=== PATIENT | male | born 1980 | race Caucasian/White ===

== ENCOUNTER 2022-03-18 10:51 | Emergency (ER) | payer MEDICARE, SELFPAY ==
--- NOTE | ~2022-03-18 | XR_ITS ---
EXAMINATION: XR soft tissue neck DATE: 03/18/2022 11:20 INDICATION: Throat swelling. TECHNIQUE: 2 views of the neck soft tissues were obtained. COMPARISON: None. FINDINGS: The adenoids and palatine tonsils are enlarged. The epiglottis, prevertebral soft tissues, and glottis are normal. IMPRESSION: 1. Enlarged adenoids and palatine tonsils. Reviewed, dictated and finalized at location A.
[2022-03-18 11:00] VITALS: BP 153/97; PULSE 93; RESP 20; TEMP 36.3; O2SAT 97
--- NOTE | 2022-03-18 11:02 | ED.URI ---
HPI - URI/Sore Throat General Chief Complaint: Upper Respiratory Infection Stated Complaint: Sore Throat Time Seen by Provider: 03/18/22 11:03 Source: patient and RN notes reviewed Mode of arrival: ambulatory Limitations: no limitations History of Present Illness HPI Narrative: 41-year-old male presented for complaint of sore throat and raspy voice, onset yesterday. endorses intermittent hoarseness over the past 2 weeks with sinus congestion and drainage. Denies shortness of breath, wheezing, nausea, vomiting, diarrhea, fevers or chills. He has not vaccinated for COVID or flu. He denies sick contacts. He smokes 1 pack/day. Denies drug use. MD elicited complaint: cough Related Data Home Medications Medication Instructions Recorded Confirmed No Home Medications 03/18/22 03/18/22 Allergies Allergy/AdvReac Type Severity Reaction Status Date / Time ibuprofen Allergy Rash Verified 03/18/22 11:20 Review of Systems Review of Systems: CONSTITUTIONAL: Endorses malaise EYES: Denies visual changes ENT: Reports rhinorrhea, congestion, sore throat, hoarseness CARDIOVASCULAR: Denies chest pain RESPIRATORY: Reports cough, post nasal drainage. Denies dyspnea GASTROINTESTINAL: Denies abdominal pain, nausea, vomiting, diarrhea NEUROLOGIC: Denies headache Exam Narrative: GENERAL: Ill-appearing, nontoxic no acute distress. HEAD: Normocephalic EYES: PERRLA, conjunctivae clear ENT: Mucous membranes moist. TM pearly yeung with dull light reflex bilaterally; no tragal tenderness. Oropharynx erythematous and edematous soft palate and muffled voice; without lesions or exudate, no drooling, no hoarseness, no trismus, uvula midline. No tripod positioning NECK: Supple. No lymphadenopathy CHEST: Clear to auscultation, breath sounds equal. Speaks full sentences, no wheezing. HEART: Regular rate and rhythm. No murmur heard. SKIN: Warm, dry, no rash. NEURO: Alert and oriented x3. Course Course Emergency Course: Patient is aware of diagnosis, understands and agrees to treatment plan. Anticipatory guidance given. Patient agrees to follow-up as directed and is aware of reasons to seek care at the emergency department. Portions of this record may have been created with voice recognition software Level of Care: Express Care Visit Vital Signs Vital signs: reviewed MDM - URI/Sore Throat MDM Narrative Medical decision making narrative: strep positive. Xray reviewed with pt, enlarged adenoids and palantine tonsils. Advised on supportive treatment, abx and steroids Rx. He is advised at length on s/s to go to the ER including difficulty breathing/wheezing, worse pain, throat swelling, etc. v/u. Differential Diagnosis Differential diagnosis: Likely upper respiratory infection, sinusitis, viral infection and pharyngitis Imaging Data Radiologist's impression: Ordering Physician: Charlotte Sher APRN Date of Service: 03/18/22 Procedure(s): XR soft tissue neck Accession Number(s): [id number] cc: Charlotte Sher APRN; UNKNOWN,DOCTOR~ EXAMINATION: XR soft tissue neck DATE: 03/18/2022 11:20 INDICATION: Throat swelling. TECHNIQUE: 2 views of the neck soft tissues were obtained. COMPARISON: None. FINDINGS: The adenoids and palatine tonsils are enlarged. The epiglottis, prevertebral soft tissues, and glottis are normal. IMPRESSION: 1. Enlarged adenoids and palatine tonsils. Discharge Plan Discharge Clinical Impression: Strep pharyngitis Patient Disposition: Home, Self-Care Condition: Stable Instructions: Antibiotic Form, Strep Throat (ED) Additional Instructions: - Take the antibiotic as directed. Fever and sore throat typically resolve within one to three days. Most patients can return to work 24 hours of antibiotic therapy, provided you are fever free and otherwise well. -Eat and drink things that are easy to swallow, like soft foods, cool liquids, tea with honey, or popsicles . -Salt water gar
[2022-03-18] MEDS: methylPREDNISolone SOD SUCC 125 MG VIAL IM (11:27)
== END 2022-03-18 11:48 | disposition home or self-care (01) ==
PROVIDERS: Emergency Provider Nurse Practitioner Family
DX: J02.0 Streptococcal pharyngitis (principal); Z20.822 Contact with and (suspected) exposure to COVID-19; F17.200 Nicotine dependence, unspecified, uncomplicated
CPT/HCPCS: 70360; 87426; 87804; 87880; 96372; 99203; C9803; G0463; J2930

== ENCOUNTER 2023-05-13 01:34 | Inpatient (IN) | payer OTHER, MEDICARE, MEDICAID, SELFPAY ==
[2023-05-13] VITALS (53 sets, daily range): BP systolic 102–146; BP diastolic 65–95; PULSE 79–106; RESP 14–24; TEMP 36.4–38.1; O2SAT 93–100; BMI 40.5
--- NOTE | 2023-05-13 | ECHO_ITS ---
Patient Info Name: Bandar Smalls Age: 43 years : 1980 Gender: Male Ht: 75 in Wt: 304 lbs BSA: 2.75 m2 HR: 93 bpm BP: 131 / 81 mmHg Heart Rhythm: Sinus Rhythm Technical Quality: Fair Exam Date: 05/13/2023 8:49 AM Exam Location: [facility] Patient Status: Inpatient Admit Date: 05/13/2023 Staff Ordering Physician: Kimmy Brito MD Epidemiology Internship: Christine Vigil RDCS Attending Provider: Vasiliy Acuna MD Referring Physician: Daryl LAND; Exam Type: CA echo doppler color flow Study Info Indications - pulmonary edema Complete two-dimensional, color flow and Doppler transthoracic echocardiogram is performed with contrast to opacify the left ventricle and to improve the deliniation of the left ventricle endocardial borders. Summary 1. Technically difficult study with limited views. 2. Left ventricular chamber dimension is normal. 3. Left ventricular systolic function is normal, estimated at 55-60%. 4. The left ventricular diastolic function is grade I diastolic dysfunction. 5. Right ventricular systolic function is normal. 6. There is mild tricuspid valve regurgitation. Left Ventricle Left ventricular chamber dimension is normal. Left ventricular systolic function is normal, estimated at 55-60%. There is no increased left ventricular wall thickness. The left ventricular diastolic function is grade I diastolic dysfunction. Right Ventricle Right ventricular chamber dimension is normal. Right ventricular systolic function is normal. Left Atria Left atrial chamber dimension is normal. Right Atria Right atrial chamber dimension is normal. Atrial Septum Interatrial septum not well visualized by color flow imaging. Aortic Valve The aortic valve is not well visualized. There is no aortic valve stenosis. There is no aortic valve regurgitation. Pulmonic Valve The pulmonic valve is not well visualized. Mitral Valve The mitral valve has thickened leaflets. There is trace mitral valve regurgitation. The mitral valve annulus is mildly calcified. Tricuspid Valve There is mild tricuspid valve regurgitation. Pericardium/Pleural There is no pericardial effusion. Inferior Vena Cava Inferior vena cava is not well visualized. Aorta The aortic root size at the sinus of Valsalva is normal. Left Ventricular Outflow Tract Name Value Normal LVOT 2D LVOT Diameter 2.0 cm LVOT Doppler LVOT Peak Gradient 3 mmHg LVOT Mean Gradient 2 mmHg LVOT VTI 17 cm LVOT VTI/AV VTI Ratio 1.2 LVOT Stroke Volume 56 ml LVOT CO 4.8 l/min LVOT CI 1.7 l/min/m2 Pulmonic Valve Name Value Normal RVOT Doppler RVOT Peak Gradient 2 mmHg PV Doppler
--- NOTE | ~2023-05-13 | XR_ITS ---
Portable chest x-ray Comparison: 05/13/2023 Clinical History: Respiratory failure Findings: Endotracheal tube, NG tube, and right IJ line are in satisfactory positions. There is cent ral congestive change and mild central pulmonary edema pattern. Cardiomediastinal silhouette is stab le. Bones and soft tissues are unremarkable. Impression: Support tubes, as above. Central congestive change and mild central pulmonary edema. Reviewed, dictated and finalized at location . Impression: Support tubes, as above. Central congestive change and mild central pulmonary edema.
--- NOTE | ~2023-05-13 | XR_ITS ---
Portable chest x-ray Comparison: 05/19/2023 Clinical History: Respiratory failure Findings: Right IJ line is in place. Small left pleural effusion present. There is probable discoid right basilar atelectasis. Cardiomediastinal silhouette is stable. Bones and soft tissues are unrema rkable. Impression: Right IJ line in place. Minimal left pleural effusion. Probable discoid right basilar atelectasis. Correlate clinically for pneumonia. Reviewed, dictated and finalized at location . Impression: Right IJ line in place. Minimal left pleural effusion. Probable discoid right basilar atelectasis. Correlate clinically for pneumonia.
--- NOTE | ~2023-05-13 | XR_ITS ---
XR chest 1V portable DATE: 05/15/2023 05:37 INDICATION: Acute respiratory failure. Mechanical ventilation. TECHNIQUE: Portable AP chest on 05/15/2023 at 0528 hours COMPARISON: 05/14/2023 portable AP chest at 0509 hours FINDINGS: ET tube in satisfactory position. NG tube in gastric fundus in satisfactory position. Right internal jugular central venous catheter tip overlies the proximal superior vena cava. Cardiomegaly. There is pulmonary vascular congestion and redistribution. There are bilateral mid and lower lung zone infiltrates and/or atelectasis. Pulmonary interstitial prominence suggests pulmonary edema. IMPRESSION: Congestive changes and bilateral infiltrates and/atelectasis with little interval change since 05/14/2023 Reviewed, dictated and finalized at location A. IMPRESSION: Congestive changes and bilateral infiltrates and/atelectasis with l ittle interval change since 05/14/2023
--- NOTE | ~2023-05-13 | XR_ITS ---
XR chest 1V portable DATE: 05/16/2023 05:37 INDICATION: Acute respiratory failure; mechanical ventilation TECHNIQUE: Portable AP chest on 05/16/2023 at 0511 hours COMPARISON: 05/15/2023 portable AP chest at 0528 hours FINDINGS: Increased bilateral pulmonary infiltrates since 05/15/2023 suggesting increased pulmonary ed shanice. Pneumonia or aspiration are not excluded. ET and NG tubes are in satisfactory position. Right internal jugular central venous catheter tip over lies proximal superior vena cava. No pneumothorax. IMPRESSION: Diffusely increased prominent bilateral pulmonary infiltrates suggesting increased pulmon kylee edema since 05/15/2023 Reviewed, dictated and finalized at location A. IMPRESSION: Diffusely increased prominent bilateral pulmonary infiltrates sugge sting increased pulmonary edema since 05/15/2023
--- NOTE | ~2023-05-13 | US_ITS ---
US venous doppler UE RT DATE: 05/14/2023 13:21 INDICATION: Swelling of the right upper extremity TECHNIQUE: Real-time and color flow imaging and Doppler analysis of the veins of the right upper extr emity COMPARISON: None FINDINGS: Right internal jugular vein is not able to be evaluated because of an IUD in the neck. There is flow in the right subclavian, axillary, brachial, basilic, cephalic, radial and ulnar veins, with normal augmentation and normal compression where applicable. IMPRESSION: No evidence of deep venous thrombosis of right upper extremity Right internal jugular vein is not evaluated Reviewed, dictated and finalized at [facility]. Reviewed, dictated and finalized at location [facility].
--- NOTE | ~2023-05-13 | XR_ITS ---
Portable chest x-ray Comparison: None Clinical History: Tube placement Findings: Endotracheal tube is present, tip at the jennifer. NG tube in satisfactory position. Questio nable minimal left lung haziness. Cardiomediastinal silhouette is prominent. Bones and soft tissues are unremarkable. Impression: Endotracheal tube tip is at the jennifer. Retraction by 4-5 cm advised. NG tube in place. Questionable minimal haziness left lung, nonspecific. Reviewed, dictated and finalized at location [facility]. Impression: Endotracheal tube tip is at the jennifer. Retraction by 4-5 cm advised. NG tube in place. Questionable minimal haziness left lung, nonspecific.
--- NOTE | ~2023-05-13 | CT_ITS ---
Noncontrast CT scan of the cervical spine Technique: Multiple contiguous axial [address] images of the cervical spine were obtained and rec onstructed in 2D sagittal and coronal planes on the acquisition scanner. Dose reduction technique was used on this scan by utilizing automated exposure control, adjustment of the mA and/or kV according to patient size. The dose-length product (DLP) was 617.50 mGy-cm. Clinical History: Unresponsive Findings: No fractures or dislocations. There is minimal reversal normal cervical lordosis. The inte rvertebral disc spaces are preserved. No prevertebral soft tissue swelling. Impression: No fracture or subluxation of the cervical spine. Reviewed, dictated and finalized at location . Impression: No fracture or subluxation of the cervical spine.
--- NOTE | ~2023-05-13 | XR_ITS ---
Portable chest x-ray Comparison: 05/18/2023 Clinical History: Respiratory failure Findings: Endotracheal tube, NG tube, and right IJ line are in satisfactory positions. There is mode rate pulmonary edema pattern with small left pleural effusion. Cardiomediastinal silhouette is stabl e. Bones and soft tissues are unremarkable. Impression: Moderate pulmonary edema pattern with small left pleural effusion. Support tubes, as above. Reviewed, dictated and finalized at location . Impression: Moderate pulmonary edema pattern with small left pleural effusion. Support tubes, as above.
--- NOTE | ~2023-05-13 | XR_ITS ---
Portable chest x-ray Comparison: 05/13/2023 at 2:24 AM Clinical History: Tube placement Findings: Endotracheal tube, NG tube, and right IJ line are in satisfactory positions. There is mini mal haziness in the left lung, similar to prior exam. Right lung essentially clear. Cardiomediastina l silhouette is stable. Bones and soft tissues are unremarkable. Impression: Support tubes, as above. No pneumothorax. Minimal nonspecific haziness in the left lung, unchanged. Reviewed, dictated and finalized at location M. Impression: Support tubes, as above. No pneumothorax. Minimal nonspecific haziness in the left lung, unchanged.
--- NOTE | ~2023-05-13 | CT_ITS ---
Clinical Indication: Dissection CT Scan of the Chest, Abdomen, and Pelvis with Contrast: Technique: Contiguous sections were acquired throughout the chest, abdomen, and pelvis after intraven ous administration of 100 cc of Omnipaque 350. Dose reduction technique was used on this scan by michelle farmer automated exposure control and iterative reconstruction technique. The dose-length product (DL P) was 2177.54 mGy-cm. Findings: There is no evidence of any significant mediastinal, hilar or axillary lymphadenopathy. The mediastin al soft tissues appear normal. There is no thoracic aortic aneurysm or dissection. There is no evidence of pleural or pericardial effusion. There is dependent bilateral pulmonary atelectatic change.. The liver, spleen, pancreas, adrenals and kidneys are within normal limits. Cholecystectomy clips are present. No abdominal aortic aneurysm or dissection. No lymphadenopathy. No bowel obstruction or bowel wall thickening. There is no evidence to suggest acute appendicitis. Th ere is probable postoperative change or possibly mesh at the left lower quadrant. Nicholas catheter in place in the urinary bladder. No pelvic mass seen. No ascites. Impression: No aortic aneurysm or dissection. Dependent bilateral pulmonary atelectatic change. Correlate clinically for any possibility of superim posed pneumonia. Reviewed, dictated and finalized at [facility]. Impression: No aortic aneurysm or dissection. Dependent bilateral pulmonary atelectatic change. Correlate clinically for any possibility of superimposed pneumonia.
--- NOTE | ~2023-05-13 | XR_ITS ---
Supine and upright views of the abdomen Clinical history: NG tube placement Findings: NG tube in satisfactory position. Bowel gas pattern is nonspecific. No evidence for obstruc tion or free air. No abnormal mass lesion or calcification is seen. Lumbosacral spinal fixation hardw are present. Impression: NG tube in satisfactory position. Reviewed, dictated and finalized at [facility]. Impression: NG tube in satisfactory position.
--- NOTE | ~2023-05-13 | XR_ITS ---
Portable chest x-ray Comparison: 05/16/2023 Clinical History: Respiratory failure Findings: Endotracheal tube and NG tube are in satisfactory positions. Right IJ line has flipped lat erally into the right subclavian vein. [id number] bilateral pleural effusions are present with moderate pulmonary edema pattern. Cardiomediastinal silhouette is stable. Bones and soft tissues ar e unremarkable. Impression: Moderate pulmonary edema pattern with small to moderate bilateral pleural effusions and left basilar atelectasis. Right IJ line tip has flipped laterally into the right subclavian vein. Repositioning into the SVC is advised. ET tube and NG tube are in satisfactory positions. Reviewed, dictated and finalized at location . Impression: Moderate pulmonary edema pattern with small to moderate bilateral pleural effus ions and left basilar atelectasis. Right IJ line tip has flipped laterally into the right subclavian vein. Reposit ioning into the SVC is advised. ET tube and NG tube are in satisfactory positions.
--- NOTE | ~2023-05-13 | XR_ITS ---
Portable chest x-ray Comparison: 05/17/2023 Clinical History: Respiratory failure Findings: Endotracheal tube, NG tube, and right IJ line are in satisfactory positions. There is mild to moderate pulmonary edema pattern. Small left pleural effusion present. Cardiomediastinal silhoue tte is stable. Bones and soft tissues are unremarkable. Impression: Mild to moderate pulmonary edema pattern with small left pleural effusion. Support tubes, as above. Reviewed, dictated and finalized at location . Impression: Mild to moderate pulmonary edema pattern with small left pleural effusion. Support tubes, as above.
--- NOTE | ~2023-05-13 | CT_ITS ---
Non-contrast Head CT History: Unresponsive Technique: Axial non-contrast imaging of the brain was performed. Dose reduction technique was used on this scan by utilizing automated exposure control and iterative reconstruction technique. The dose -length product (DLP) was 617.50 mGy-cm. Findings: There is no evidence of intracranial hemorrhage, mass lesion, or acute infarct. Brain par enchyma appears normal. The ventricles and subarachnoid spaces are normal in size. The calvarium ap pears normal. The visualized paranasal sinuses and mastoid air cells are clear. Impression: No significant abnormality seen. Reviewed, dictated and finalized at location . Impression: No significant abnormality seen.
--- NOTE | ~2023-05-13 | XR_ITS ---
Portable chest x-ray Comparison: 05/20/2023 Clinical History: Respiratory failure Findings: There is discoid bibasilar atelectasis. Lungs are otherwise clear. Cardiomediastinal silh ouette is stable. Bones and soft tissues are unremarkable. Impression: Discoid bibasilar atelectasis. Reviewed, dictated and finalized at location . Impression: Discoid bibasilar atelectasis.
--- NOTE | 2023-05-13 01:44 | ED.GENADULT ---
HPI - General Adult General Chief complaint: Neuro Symptoms/Deficit Stated complaint: unresponsive Time Seen by Provider: 05/13/23 01:36 History of Present Illness HPI narrative: 41 year old male unknown past medical history brought in by EMS for unresponsiveness. Per EMS, bystanders noted patient was coming out of a gas station when he suddenly collapsed. When EMS on scene, narcan was given without improvement. Patient with agonal breathing so patient was intubated with etomidate, right IO placed. Patient was agitated, self-extubated, EMS re-intubated patient. A: ETT in place 8.0, continuous capnography B: Bilateral breath sounds C: peripheral pulses palpable, BP 120/80s E: No gross evidence of trauma ROS limited due to condition Related Data Allergies Allergy/AdvReac Type Severity Reaction Status Date / Time ibuprofen Allergy Rash Verified 03/18/22 11:20 Review of Systems Review of Systems: See HPI Exam Narrative: General: Sedated and intubated, atraumatic HEENT: Pupils equal round and reactive to light, no conjunctival injection, head atraumatic Cardiovascular: Regular rate and rhythm, no visible jugular venous distension Respiratory: Lungs clear to auscultation bilaterally, no wheezing/rales/rhonchi Abdominal: soft, abdominal scar well healed, non-tender, non-distended, no guarding, no rebound/peritoneal signs, no costovertebral tenderness to palpation Back: no midline tenderness to palpation, no step offs Extremities: Right IO in place, No edema, palpable peripheral pulses, warm, well perfused Neurological: Sedated, moving all extremities symmetrically when agitated Course Consultations Consultation #1: Case discussed with intesivist Dr. Patel. Accepted patient to the ICU Date: 05/13/23 Time: 03:49 Vital Signs Vital signs: Vital Signs Blood Pressure 117/67 05/13/23 01:50 Pulse Oximetry 97 05/13/23 01:50 Oxygen Delivery Mechanical Ventilation 05/13/23 01:50 Pulse Rate 92 05/13/23 03:30 Respiratory Rate 14 05/13/23 03:30 Blood Pressure 117/67 05/13/23 01:50 Pulse Oximetry 97 05/13/23 04:35 Oxygen Delivery Mechanical Ventilation 05/13/23 02:17 Fraction of Inspired Oxygen 60 05/13/23 04:35 Procedures Central Line Placement Right IJ: Central Line Date: 05/13/23 Central Line Time: 03:50 Performed Emergently - Given emergent patient condition, temporal constraints may have precluded informed consent.: Yes Time Out Performed: Yes Patient Placed on Monitor/Pulse Ox: Yes Max. Sterile Barrier Technique: Caps, large sterile sheet and hand hygiene Central Line Prep: 2% chlorhexidine scrub and sterile drapes applied Technique: US-Guided Local Anesthetic: none Ultrasound Used for Placement: Yes Central Line Lumen Inserted: triple Post Procedure: sutured in place, good blood return, all ports aspirated, flushed, capped and sterile dressing applied Post Procedure X-Ray: tip of catheter in good position and no pneumothorax seen Complications: none Other Procedure Procedure 1: Other Procedure: Total critical care time: Approximately?65 minutes Due to a high probability of clinically significant, life threatening deterioration, the patient required my highest level of preparedness to intervene emergently and I personally spent this critical care time directly and personally managing the patient. This critical care time included obtaining a history; examining the patient; pulse oximetry; ordering and review of studies; arranging urgent treatment with development of a management plan; evaluation of patient's response to treatment; frequent reassessment; and, discussions with other providers. This critical care time was performed to assess and manage the high probability of imminent, life-threatening deterioration that could result in multi-organ failure. It was exclusive of [facility]
--- NOTE | 2023-05-13 02:09 | PC.NURSE ---
0145 Pt given 4 mg Versed IV push per MD verbal order. 0145 Propofol drip started a 5 mcg/kg/min per MD verbal order. 0150 Ng tube placed 73 in at the left nare. 0155 Propofol bolus 100 mg administered by . 0206 Nicholas catheter inserted.
--- NOTE | 2023-05-13 02:22 | PC.NURSE ---
DR. FREITAS at bedside. 0215 dr freitas pushed 100mg propofol. per verbal order read back propofol drip increased to 30 mcg/hr.
[2023-05-13] MEDS: FENTANYL 2,500MCG/NS250ML(*CRX 2,500 MCG/250 ML BAG IV CONT (02:29)
[2023-05-13] MEDS: SODIUM CHLORIDE 0.9% IV 1,000 ML 999 ML IV CONT (02:32)
--- NOTE | 2023-05-13 02:34 | PC.NURSE ---
verbal order readback 100 mg Rocuronium at 0235
--- NOTE | 2023-05-13 02:39 | PC.NURSE ---
0233 100 mg of rocuronium administered via IV push per MD verbal order. 0237 100 mg bolus of propofol administered by Dr. simental after numerous attempts to sedate pt have been unsuccessful.
[2023-05-13 02:43] LABS: Basophils Absolute Auto 0.1 K/mm3 (0.0-0.1); Basophils Percent Auto 0.7 % (0.2-1.2); Eosinophils Absolute Auto 0.2 K/mm3 (0-0.3); Eosinophils Percent Auto 1.9 % (0-4.4); Hematocrit 37.8 % (42.0-52.0); Hemoglobin 12.4 g/dL (14.0-18.0); Immature Granulocyte Absolute 0.03 K/mm3 (0.00-0.031); Immature Granulocyte Percent A 0.4 % (0-0.5); Lymphocytes Absolute Auto 1.43 K/mm3 (0.9-3.2); Lymphocytes Percent Auto 16.8 % (18.3-44.2); Mean Corpuscular HGB Conc 32.8 g/dl (32-36); Mean Corpuscular Hemoglobin 30.5 pg (26-34); Mean Corpuscular Volume 92.9 fl (80-100); Mean Platelet Volume 10.5 fl (7.4-10.4); Monocytes Absolute Auto 0.7 K/mm3 (0.1-0.6); Monocytes Percent Auto 8.2 % (2.6-8.5); Neutrophils Absolute Auto 6.2 K/mm3 (1.3-6.7); Platelet Count Result 250 k/mm3 (150-375); Red Blood Count 4.07 M/mm3 (4.6-6.20); Red Cell Distribution Width 13.6 % (11.5-14.5); White Blood Count 8.5 K/mm3 (4.5-10.0)
--- NOTE | 2023-05-13 02:47 | ECG_ITS ---
Measurements Intervals Santa Rate: 98 P: 57 ND: 151 QRS: 31 QRSD: 111 T: 38 QT: 396 QTc: 507 Interpretive Statements SINUS RHYTHM INTRAVENTRICULAR CONDUCTION DELAY DELAYED PRECORDIAL R/S TRANSITION MINIMAL Q WAVES- INFERIOR LEADS BORDERLINE ECG NO PREVIOUS ECG AVAILABLE FOR COMPARISON Electronically Signed On 05-13-2023 8:24:55 CDT by Michele Mccracken D.O.
--- NOTE | 2023-05-13 02:47 | PC.NURSE ---
0245 per MD verbal order read back, Propofol drip increased to 50mcg/hr. MD at bedside continuing attempts to sedate patient.
--- NOTE | 2023-05-13 02:49 | PC.NURSE ---
0249 Dr. Gomez to attempt central line on patient.
[2023-05-13 02:54] LABS: Barbiturate Screen Urine Negative (Negative); Benzodiazepines Screen Urine Positive (Negative)
[2023-05-13 02:56] LABS: Cannabinoid Screen Urine Negative (Negative); Cocaine Screen Urine Negative (Negative); Ethanol < 10 mg/dL (<10); Methadone Screen Urine Negative (Negative); Opiate Screen Urine Positive (Negative); Phencyclidine Screen Urine Negative (Negative)
[2023-05-13 03:01] LABS: Acetaminophen < 10 ug/mL (10-30); Salicylate < 1.0 mg/dL (2-20)
[2023-05-13 03:13] LABS: Alanine Aminotransferase 58 U/L (6-50); Albumin Level 4.2 g/dL (3.5-5.1); Alkaline Phosphatase 46 U/L (38-126); Amphetamine Screen Urine Positive (Negative); Anion Gap 12 mmol/L (8-16); Aspartate Amino Transferase 61 U/L (17-59); Bilirubin,Total 0.8 mg/dL (0.2-1.3); Blood Urea Nitrogen 19 mg/dL (9-20); Calcium 8.8 mg/dL (8.4-10.2); Carbon Dioxide 27 mmol/L (22-30); Chloride 102 mmol/L (98-107); Estimated Glomerular Filt Rate > 60; Glucose 167 mg/dL (65-110); Lipase 65 U/L (23-300); Potassium 3.7 mmol/L (3.4-5.0); Sodium 141 mmol/L (137-145)
[2023-05-13 03:24] LABS: Troponin I < 0.012 ng/mL (0.000-0.034)
[2023-05-13 03:26] LABS: Creatine Kinase 376 U/L (55-170)
[2023-05-13 03:36] LABS: NT Pro B Type Natriuretic Pept 164 pg/mL (19.9-100)
--- NOTE | 2023-05-13 05:21 | PC.NURSE ---
fentanyl titrated at 0245 to 50 mcg/hr not 50ml/hr 0300 to 75 mcg/hr not 75ml/hr 0315 to 100 mcg/hr not 100ml/hr [facility] will not allow this RN to correct rates in MAR.
[2023-05-13] MEDS: MIDAZOLAM HCL (*CRX) 2 MG/2 ML VIAL 4 MG IV PUSH (05:43)
[2023-05-13] MEDS: LORazepam INJ (*CRX) 2 MG/ML VIAL IV PUSH ×2 (05:43)
[2023-05-13] MEDS: PROPOFOL IV EMULSION 100 ML 4.08 MG IV CONT (05:50)
--- NOTE | 2023-05-13 06:34 | PC.NURSE ---
0620 Waiting for respiratory to help take pt up to the ICU at this time.
--- NOTE | 2023-05-13 07:26 | ADMGEN ---
This patient, Bandar Smalls, was admitted to Intensive Care Unit-1. Patient/family oriented to hospital policies and general routines including ID bracelet, bed and alarms, visiting hours, pain management, procedures, bathroom and other care routines, personal items, smoking policy, room service/diet, and visiting hours. Information on how to activate the Rapid Response Team has been discussed. Patient/Family are encouraged to report perceived risks to care and to ask questions if they do not understand what they are told or what they should do.
[2023-05-13] MEDS: PROPOFOL IV EMULSION 100 ML 24.49 MG IV CONT ×3 (07:27→18:52)
[2023-05-13] MEDS: AZITHROMYCIN 500 MG/NS 250 ML 500 MG/250 ML BAG 250 MG IVPB (07:38)
[2023-05-13] MEDS: AMPICILLIN SULB 3 GM/NS 100 ML 3 GM/100 ML VIAL IVPB ×3 (08:25→17:23)
[2023-05-13] MEDS: PERFLUTREN LIPID MICROSPHERES 1.5 ML VIAL DILUTED TO 10 ML TOTAL VOLUME IV PUSH (08:30)
[2023-05-13] MEDS: LACTATED RINGERS 1,000 ML 100 ML IV CONT ×2 (08:35→20:17)
[2023-05-13] MEDS: LACTATED RINGERS 1,000 ML 999 ML IV CONT (08:35)
[2023-05-13] MEDS: MINERAL OIL/WHITE PETROLATUM OINTMENT 1 APPLIC EACH EYE ×2 (08:35→20:30)
[2023-05-13 08:42] LABS: Creatine Kinase 314 U/L (55-170)
[2023-05-13 08:44] LABS: Lactic Acid Reflex 0.7 mmol/L (0.7-2.0)
[2023-05-13 08:46] LABS: Triglycerides 101 mg/dL (<150)
[2023-05-13 08:54] LABS: Troponin I 0.019 ng/mL (0.000-0.034)
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
[2023-05-13 09:26] LABS: Procalcitonin 0.4 ng/mL
[2023-05-13 09:43] LABS: Alveolar/Arterial O2 Gradient 304.3 mmHg; Base Excess ABG 1.6 mEq/l (+/-2.0); Fractional Inspired Oxygen 60 %; HCO3 ABG 25.9 mEq/l (22.0-26.0); Oxygen Content ABG 17.2 %vol (16.0-22.0); Oxygen Saturation ABG 96.1 % (95.0-100.0); Oxyhemoglobin 94.3 % THb (90.0-100.0); PCO2 ABG 39.7 mmHg (35.0-45.0); PO2 ABG 79.8 mmHg (80.0-100.0); PO2 FiO2 Ratio Arterial Blood 1.33 %; Total Hemoglobin 12.9 g/dL (12.0-18.0); pH ABG 7.433 (7.350-7.450)
[2023-05-13] MEDS: PROPOFOL IV EMULSION 100 ML 20.41 MG IV CONT (09:43)
[2023-05-13 09:47] LABS: Arterial Blood Gas PEEP 5 cmH2O; Arterial Blood Gas Tidal Volume 500 ml; Arterial Blood Gas Vent Mode CMV; Arterial Blood Gas Ventilator rate 22 /MIN; Device VENTILATOR; Modified Allen's Test Pass; Site Drawn RIGHT RADIAL
[2023-05-13] MEDS: ENOXAPARIN 40 MG/0.4 ML SYRINGE SUB-Q (11:00)
[2023-05-13] MEDS: PANTOPRAZOLE SODIUM IV 40 MG VIAL IV PUSH (11:10)
[2023-05-13] MEDS: FENTANYL 2,500MCG/NS250ML(*CRX 2,500 MCG/250 ML BAG 15 MCG IV CONT (16:32)
--- NOTE | 2023-05-13 17:09 | PM.IMHP ---
H&P: HPI History of Present Illness Date/Time: 05/13/23 17:09 Chief Complaint: respiratory failure Narrative: ED-HPI narrative: 41 year old male unknown past medical history brought in by EMS for unresponsiveness. Per EMS, bystanders noted patient was coming out of a gas station when he suddenly collapsed. When EMS on scene, narcan was given without improvement. Patient with agonal breathing so patient was intubated with etomidate, right IO placed. Patient was agitated, self-extubated, EMS re-intubated patient. A: ETT in place 8.0, continuous capnography B: Bilateral breath sounds C: peripheral pulses palpable, BP 120/80s E: No gross evidence of trauma 43-year-old male with history drug abuse and presented with a respiratory failure on ventilator unable to provide any history review of symptom, patient is seen by ict educator and appreciate. patient with respiratory failure on ventilator admitted as inpatient Review of Systems Review of Systems: ROS unobtainable: Yes unobtainable due to endotracheal tube PMFSH Family History Family History (Updated 05/13/23 @ 10:18 by Jodi Wahl RN) Father Lung cancer Diabetes mellitus Mother Diabetes mellitus Social History Social History Smoking packs per day: 1.5 Smoking cigarettes per day: 30.0 Years smoked: 28 Smoking pack-years: 42.00 Smoking status: Current every day smoker Tobacco type: cigarettes Alcohol intake: never Substance use: current Substance use type: amphetamines, sedatives and opiates Spiritual care concerns: No Meds Home Medications and Allergies Home Medications Medication Instructions Recorded Confirmed Type clonidine HCl 0.1 mg tablet 0.1 mg PO TID 05/13/23 05/13/23 History duloxetine 60 mg capsule,delayed 60 mg PO DAILY 05/13/23 05/13/23 History release mirtazapine 15 mg tablet 15 mg PO HS 05/13/23 05/13/23 History naloxone 4 mg/actuation nasal spray 1 spray intranasal Q15M PRN Opioid 05/13/23 05/13/23 History Overdose quetiapine 100 mg tablet 100 mg PO DAILY 05/13/23 05/13/23 History tramadol 50 mg tablet 50 mg PO Q6H PRN Pain (Scale Score 05/13/23 05/13/23 History 4-6) trazodone 50 mg tablet 50 mg PO HS 05/13/23 05/13/23 History Allergies Allergy/AdvReac Type Severity Reaction Status Date / Time ibuprofen Allergy Rash Verified 03/18/22 11:20 Vital Signs Vital Signs - 24 hr 05/13/23 01:50 05/13/23 02:17 05/13/23 02:29 Temperature Pulse Rate 105 H 106 H Respiratory Rate 17 Blood Pressure 117/67 Pulse Oximetry 97 97 Oxygen Delivery Mechanical Ventilation Mechanical Ventilation Fraction of Inspired Oxygen 100 05/13/23 02:45 05/13/23 03:00 05/13/23 03:15 Temperature Pulse Rate 98 97 98 Respiratory Rate 14 14 14 Blood Pressure Pulse Oximetry Oxygen Delivery Fraction of Inspired Oxygen 05/13/23 04:35 05/13/23 02:54 05/13/23 03:30 Temperature Pulse Rate 89 92 Respiratory Rate 14 Blood Pressure Pulse Oximetry 97 Oxygen Delivery Fraction of Inspired Oxygen 60 05/13/23 04:20 05/13/23 05:00 05/13/23 05:50 Temperature Pulse Rate 89 90 90 Respiratory Rate 22 H 22 H 22 H Blood Pressure Pulse Oximetry Oxygen Delivery Fraction of Inspired Oxygen 05/13/23 05:50 05/13/23 05:55 05/13/23 05:15 Temperature Pulse Rate 93 91 79 Respiratory Rate 22 H 22 H 14 Blood Pressure 131/81 Pulse Oximetry 95 Oxygen Delivery Fraction of Inspired Oxygen 05/13/23 02:18 05/13/23 03:18 05/13/23 03:30 Temperature Pulse Rate 106 H 99 97 Respiratory Rate 22 H 14 14 Blood Pressure 146/92 H 118/71 110/71 Pulse Oximetry 98 99 97 Oxygen Delivery Fraction of Inspired Oxygen 05/13/23 03:35 05/13/23 03:40 05/13/23 03:45 Temperature Pulse Rate 96 95 94 Respiratory Rate 14 14 14 Blood Pressure 111/70 113/74 114/68 Pulse Oximetry 97 98 98 Oxygen D
[2023-05-13 17:26] LABS: Glucose Point of Care 143 mg/dl (65-105)
[2023-05-13] MEDS: PROPOFOL IV EMULSION 100 ML 36.74 MG IV CONT (22:56)
[2023-05-14] VITALS (52 sets, daily range): BP systolic 112–152; BP diastolic 60–82; PULSE 88–102; RESP 14–29; TEMP 37.7–38.3; O2SAT 92–100
[2023-05-14 00:09] LABS: Glucose Point of Care 139 mg/dl (65-105)
[2023-05-14] MEDS: AMPICILLIN SULB 3 GM/NS 100 ML 3 GM/100 ML VIAL IVPB ×4 (00:09→17:05)
[2023-05-14] MEDS: PROPOFOL IV EMULSION 100 ML 40.82 MG IV CONT ×5 (01:24→11:09)
[2023-05-14] MEDS: MIDAZOLAM 100MG/NS 100ML(*CRX) 100 MG/100 ML BAG IV CONT ×2 (02:13→23:43)
[2023-05-14] MEDS: IPRATROPIUM BR 0.02% INH SOLN 0.5 MG/2.5 ML VIAL INHALATION ×4 (02:46→20:28)
[2023-05-14] MEDS: ALBUTEROL SULFATE NEB 2.5 MG/3 ML INH INHALATION ×4 (02:46→20:27)
[2023-05-14] MEDS: DORNASE ALFA INH SOLN 1 MG/ML 2.5 ML AMP 2.5 MG INHALATION (02:47)
[2023-05-14 05:05] LABS: Alveolar/Arterial O2 Gradient 248.5 mmHg; Base Excess ABG 1.2 mEq/l (+/-2.0); Carboxyhemoglobin 0.8 % THb (0-2.0); Fractional Inspired Oxygen 50 %; HCO3 ABG 25.1 mEq/l (22.0-26.0); Methemoglobin ABG 0.4 %THb (0-1.5); Oxygen Content ABG 15.3 %vol (16.0-22.0); Oxygen Saturation ABG 93.8 % (95.0-100.0); Oxyhemoglobin 91.3 % THb (90.0-100.0); PCO2 ABG 37.5 mmHg (35.0-45.0); PO2 ABG 65.8 mmHg (80.0-100.0); PO2 FiO2 Ratio Arterial Blood 1.32 %; Reduced Hemoglobin 7.5 %THb (0-5.0); Total Hemoglobin 11.9 g/dL (12.0-18.0); pH ABG 7.444 (7.350-7.450)
[2023-05-14 05:06] LABS: Device VENTILATOR; Modified Allen's Test Pass; Site Drawn RIGHT RADIAL
[2023-05-14 05:07] LABS: Arterial Blood Gas PEEP 5 cmH2O; Arterial Blood Gas Tidal Volume 500 ml; Arterial Blood Gas Vent Mode CMV; Arterial Blood Gas Ventilator rate 22 /MIN
[2023-05-14] MEDS: LACTATED RINGERS 1,000 ML 100 ML IV CONT (06:05)
[2023-05-14 06:19] LABS: Basophils Absolute Auto 0.1 K/mm3 (0.0-0.1); Basophils Percent Auto 0.9 % (0.2-1.2); Eosinophils Absolute Auto 0.5 K/mm3 (0-0.3); Eosinophils Percent Auto 5.3 % (0-4.4); Hematocrit 34.4 % (42.0-52.0); Hemoglobin 11.3 g/dL (14.0-18.0); Immature Granulocyte Absolute 0.04 K/mm3 (0.00-0.031); Immature Granulocyte Percent A 0.4 % (0-0.5); Lymphocytes Absolute Auto 1.48 K/mm3 (0.9-3.2); Lymphocytes Percent Auto 15.2 % (18.3-44.2); Mean Corpuscular HGB Conc 32.8 g/dl (32-36); Mean Corpuscular Hemoglobin 30.8 pg (26-34); Mean Corpuscular Volume 93.7 fl (80-100); Mean Platelet Volume 10.2 fl (7.4-10.4); Monocytes Absolute Auto 0.8 K/mm3 (0.1-0.6); Monocytes Percent Auto 7.7 % (2.6-8.5); Neutrophils Absolute Auto 6.9 K/mm3 (1.3-6.7); Neutrophils Percent Auto 70.5 % (45.5-73.1); Platelet Count Result 210 k/mm3 (150-375); Red Blood Count 3.67 M/mm3 (4.6-6.20); White Blood Count 9.8 K/mm3 (4.5-10.0)
[2023-05-14 06:25] LABS: Creatine Kinase 143 U/L (55-170); Lipase 108 U/L (23-300); Magnesium 2.2 mg/dL (1.6-2.3)
[2023-05-14 06:25] LABS: Lactic Acid Reflex 0.8 mmol/L (0.7-2.0)
[2023-05-14 07:11] LABS: Anion Gap 7 mmol/L (8-16); Blood Urea Nitrogen 15 mg/dL (9-20); Carbon Dioxide 29 mmol/L (22-30); Chloride 104 mmol/L (98-107); Estimated CRCL calculation 163 ml/min; Estimated Glomerular Filt Rate > 60; Glucose 92 mg/dL (65-110); Potassium 3.3 mmol/L (3.4-5.0); Sodium 140 mmol/L (137-145)
[2023-05-14 07:40] LABS: Alanine Aminotransferase 41 U/L (6-50); Albumin Level 3.4 g/dL (3.5-5.1); Alkaline Phosphatase 45 U/L (38-126); Anion Gap 5 mmol/L (8-16); Aspartate Amino Transferase 39 U/L (17-59); Bilirubin,Total 0.6 mg/dL (0.2-1.3); Blood Urea Nitrogen 15 mg/dL (9-20); Calcium 8.1 mg/dL (8.4-10.2); Carbon Dioxide 29 mmol/L (22-30); Chloride 106 mmol/L (98-107); Estimated CRCL calculation 185 ml/min; Estimated Glomerular Filt Rate > 60; Glucose 91 mg/dL (65-110); Potassium 3.3 mmol/L (3.4-5.0); Sodium 140 mmol/L (137-145)
[2023-05-14] MEDS: POTASSIUM CHLORIDE 20 MEQ PACKET (FOR LIQUID) 60 MEQ FEED TUBE (07:58)
[2023-05-14] MEDS: AZITHROMYCIN 500 MG/NS 250 ML 500 MG/250 ML BAG 250 MG IVPB (08:01)
[2023-05-14] MEDS: PANTOPRAZOLE SODIUM IV 40 MG VIAL IV PUSH (08:01)
[2023-05-14] MEDS: ENOXAPARIN 40 MG/0.4 ML SYRINGE SUB-Q (08:01)
[2023-05-14] MEDS: MINERAL OIL/WHITE PETROLATUM OINTMENT 1 APPLIC EACH EYE ×2 (08:02→21:36)
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
[2023-05-14] MEDS: FENTANYL 2,500MCG/NS250ML(*CRX 2,500 MCG/250 ML BAG 20 MCG IV CONT (10:11)
[2023-05-14] MEDS: VANCOMYCIN 1,250 MG/NS 250 ML 1,250 MG/250 ML BAG 166.67 MG IVPB ×2 (10:29→11:33)
--- NOTE | 2023-05-14 11:09 | PCNFU ---
Nutrition Follow-Up Complete: Inadequate Energy Expenditure as related to mechanical ventilation as evidenced by tube feedings recommendations. Meet estimanted nutritional needs - Goal being met with tube feeding Goal: Pt current nutrition is Vital 1.2 @ 60 ml/h for total 1584 kcal, 99 g protein, 1070 ml free water. Flushes 30 ml/h. Propofol at 50 mcg= 1077 kcal. Nutrition recommendation: Reduce rate of tube feeding to 40 ml/h (1056 kcal, 66 g protein, 713 ml free water) and add Prsoource TF protein modular BID for total 1236 kcal, 106 g protein, 713 ml free water. Kcal from propofol (40.82 ml/h)=1077. Total kcal = 2313 Last recorded weight is 149 kg. Bowel Motility: No BM recorded yet Labs Reviewed: Hgb 11.3, Hct 34.4 Alb 3.4, K+ 3.3, Glu 139 Meds Noted: Propofol, fentanyl, versed, vancomycin Skin: WNL Additional Notes: Remains on vent. Propofol was titrated up to 50 mcg, reduce tube feeding to prevent overfeeding. No skin breakdown. Tube feeding i s well tolerated. Will monitor weight,labs, tube feeding tolerance, skin every Wednesday and Wednesday.
[2023-05-14 11:45] LABS: Glucose Point of Care 126 mg/dl (65-105)
[2023-05-14] MEDS: PROPOFOL IV EMULSION 100 ML 32.66 MG IV CONT (14:02)
--- NOTE | 2023-05-14 14:44 | WPDPN ---
Progress Note: A&P Assessment and Plan (1) Acute respiratory failure: Code(s): J96.00 - Acute respiratory failure, unspecified whether with hypoxia or hypercapnia Status: Acute Assessment and Plan: ED-HPI narrative: 41 year old male unknown past medical history brought in by EMS for unresponsiveness. Per EMS, bystanders noted patient was coming out of a gas station when he suddenly collapsed. When EMS on scene, narcan was given without improvement. Patient with agonal breathing so patient was intubated with etomidate, right IO placed. Patient was agitated, self-extubated, EMS re-intubated patient. A: ETT in place 8.0, continuous capnography B: Bilateral breath sounds C: peripheral pulses palpable, BP 120/80s E: No gross evidence of trauma 05/14/2023 interval history: 43-year-old male with history drug abuse and presented with a respiratory failure on ventilator unable to provide any history review of symptom, patient has a thick secretion from ET tube and sputum culture as ordered patient is being treated with azithromycin vancomycin and ampicillin, patient is seen by platform architect and appreciate. (2) Drug overdose: Code(s): T50.901A - Poisoning by unspecified drugs, medicaments and biological substances, accidental (unintentional), initial encounter Status: Acute Assessment and Plan: patient with history of illicit drug abuse was just recently discharged from rehab however patient is positive for benzos and amphetamines (3) Elevated LFTs: Code(s): R79.89 - Other specified abnormal findings of blood chemistry Status: Acute Assessment and Plan: most likely secondary to fatty liver and drug abuse (4) Episode of unresponsiveness: Code(s): R40.4 - Transient alteration of awareness Status: Acute Assessment and Plan: secondary to drug overdose Subjective Date/time seen: 05/14/23 14:44 Interval history: ED-HPI narrative: 41 year old male unknown past medical history brought in by EMS for unresponsiveness. Per EMS, bystanders noted patient was coming out of a gas station when he suddenly collapsed. When EMS on scene, narcan was given without improvement. Patient with agonal breathing so patient was intubated with etomidate, right IO placed. Patient was agitated, self-extubated, EMS re-intubated patient. A: ETT in place 8.0, continuous capnography B: Bilateral breath sounds C: peripheral pulses palpable, BP 120/80s E: No gross evidence of trauma 05/14/2023 interval history: 43-year-old male with history drug abuse and presented with a respiratory failure on ventilator unable to provide any history review of symptom, patient has a thick secretion from ET tube and sputum culture as ordered patient is being treated with azithromycin vancomycin and ampicillin, patient is seen by platform architect and appreciate. Review of Systems Review of Systems: ROS unobtainable: Yes unobtainable due to endotracheal tube Exam Narrative: Morbidly obese Patient is comfortable, NAD HEENT: ET tube in place LUNGS: normal respiratory effort ABD: distended Lower extremities: no edema SKIN: nonjaundiced Neuro: on vent and sedated. Objective Data Vital Signs Vital Signs: Vital Signs - 24 hr 05/13/23 15:10 05/13/23 15:00 05/13/23 15:51 Temperature Pulse Rate 96 92 93 Respiratory Rate 20 22 H Blood Pressure Pulse Oximetry 99 Oxygen Delivery Mechanical Ventilation Fraction of Inspired Oxygen 40 05/13/23 16:32 05/13/23 16:00 05/13/23 16:00 Temperature 98.2 F Pulse Rate 92 93 94 Respiratory Rate 22 H 22 H Blood Pressure 102/68 Pulse Oximetry 98 Oxygen Delivery Fraction of Inspired Oxygen 05/13/23 16:00 05/13/23 16:00 05/13/23 17:35 Temperature Pulse Rate 94 93 Respiratory Rate 22 H Blood Pressure Pulse Oximetry 97 98 Oxygen Delivery Mechanical Ventilation Mechanical Ventilation Fraction of Inspired Oxygen
[2023-05-14] MEDS: PROPOFOL IV EMULSION 100 ML 28.58 MG IV CONT ×3 (16:57→23:43)
[2023-05-14 18:19] LABS: Glucose Point of Care 113 mg/dl (65-105)
[2023-05-14] MEDS: ACETAMINOPHEN ELIXIR 325 MG/10.15 ML UDC 650 MG FEED TUBE (21:38)
[2023-05-15] VITALS (44 sets, daily range): BP systolic 111–160; BP diastolic 61–101; PULSE 73–95; RESP 20–38; TEMP 36.1–38.1; O2SAT 92–99
[2023-05-15] MEDS: AMPICILLIN SULB 3 GM/NS 100 ML 3 GM/100 ML VIAL IVPB ×5 (00:46→23:39)
[2023-05-15 01:10] LABS: Glucose Point of Care 106 mg/dl (65-105)
[2023-05-15] MEDS: ALBUTEROL SULFATE NEB 2.5 MG/3 ML INH INHALATION ×4 (02:25→20:18)
[2023-05-15] MEDS: IPRATROPIUM BR 0.02% INH SOLN 0.5 MG/2.5 ML VIAL INHALATION ×4 (02:25→20:18)
[2023-05-15] MEDS: ACETAMINOPHEN ELIXIR 325 MG/10.15 ML UDC 650 MG FEED TUBE ×2 (03:23→15:55)
[2023-05-15] MEDS: PROPOFOL IV EMULSION 100 ML 28.58 MG IV CONT ×4 (03:24→22:17)
[2023-05-15 05:48] LABS: Base Excess ABG 2.8 mEq/l (+/-2.0); Carboxyhemoglobin 0.2 % THb (0-2.0); Fractional Inspired Oxygen 50 %; HCO3 ABG 26.8 mEq/l (22.0-26.0); Methemoglobin ABG 0.4 %THb (0-1.5); Oxygen Content ABG 16.1 %vol (16.0-22.0); Oxygen Saturation ABG 95.3 % (95.0-100.0); Oxyhemoglobin 93.1 % THb (90.0-100.0); PCO2 ABG 39.2 mmHg (35.0-45.0); PO2 ABG 72.4 mmHg (80.0-100.0); PO2 FiO2 Ratio Arterial Blood 1.45 %; Reduced Hemoglobin 6.3 %THb (0-5.0); Total Hemoglobin 12.3 g/dL (12.0-18.0); pH ABG 7.453 (7.350-7.450)
[2023-05-15 05:49] LABS: Device VENTILATOR; Modified Allen's Test Pass; Site Drawn RIGHT RADIAL
[2023-05-15 05:50] LABS: Arterial Blood Gas PEEP 5 cmH2O; Arterial Blood Gas Tidal Volume 500 ml; Arterial Blood Gas Vent Mode CMV; Arterial Blood Gas Ventilator rate 22 /MIN
[2023-05-15] MEDS: LACTATED RINGERS 1,000 ML 50 ML IV CONT (05:59)
[2023-05-15 06:06] LABS: Basophils Absolute Auto 0.1 K/mm3 (0.0-0.1); Eosinophils Absolute Auto 0.6 K/mm3 (0-0.3); Eosinophils Percent Auto 7.4 % (0-4.4); Hematocrit 32.9 % (42.0-52.0); Hemoglobin 10.8 g/dL (14.0-18.0); Immature Granulocyte Absolute 0.04 K/mm3 (0.00-0.031); Immature Granulocyte Percent A 0.5 % (0-0.5); Lymphocytes Absolute Auto 1.31 K/mm3 (0.9-3.2); Lymphocytes Percent Auto 15.6 % (18.3-44.2); Mean Corpuscular HGB Conc 32.8 g/dl (32-36); Mean Corpuscular Volume 94.5 fl (80-100); Mean Platelet Volume 10.3 fl (7.4-10.4); Monocytes Absolute Auto 0.8 K/mm3 (0.1-0.6); Neutrophils Absolute Auto 5.6 K/mm3 (1.3-6.7); Neutrophils Percent Auto 66.5 % (45.5-73.1); Platelet Count Result 205 k/mm3 (150-375); Red Blood Count 3.48 M/mm3 (4.6-6.20); Red Cell Distribution Width 14.1 % (11.5-14.5); White Blood Count 8.4 K/mm3 (4.5-10.0)
[2023-05-15 06:15] LABS: Triglycerides 119 mg/dL (<150)
[2023-05-15 06:17] LABS: Alanine Aminotransferase 31 U/L (6-50); Albumin Level 3.3 g/dL (3.5-5.1); Alkaline Phosphatase 41 U/L (38-126); Anion Gap 5 mmol/L (8-16); Aspartate Amino Transferase 24 U/L (17-59); Bilirubin,Total 0.7 mg/dL (0.2-1.3); Blood Urea Nitrogen 10 mg/dL (9-20); Calcium 7.9 mg/dL (8.4-10.2); Carbon Dioxide 28 mmol/L (22-30); Chloride 103 mmol/L (98-107); Creatine Kinase 67 U/L (55-170); Estimated CRCL calculation 216 ml/min; Estimated Glomerular Filt Rate > 60; Glucose 92 mg/dL (65-110); Phosphorus 4.5 mg/dL (2.5-4.5); Potassium 3.1 mmol/L (3.4-5.0); Sodium 136 mmol/L (137-145); Triglycerides 121 mg/dL (<150)
[2023-05-15] MEDS: KCL 40 MEQ/WATER 100 ML 100 ML 25 ML IVPB (09:03)
[2023-05-15] MEDS: AZITHROMYCIN 500 MG/NS 250 ML 500 MG/250 ML BAG 250 MG IVPB (09:04)
[2023-05-15] MEDS: POTASSIUM CHLORIDE 20 MEQ PACKET (FOR LIQUID) 40 MEQ FEED TUBE (09:04)
[2023-05-15] MEDS: MINERAL OIL/WHITE PETROLATUM OINTMENT 1 APPLIC EACH EYE ×2 (09:07→21:22)
[2023-05-15] MEDS: PANTOPRAZOLE SODIUM IV 40 MG VIAL IV PUSH (09:07)
[2023-05-15] MEDS: ENOXAPARIN 40 MG/0.4 ML SYRINGE SUB-Q (09:43)
[2023-05-15] MEDS: DORNASE ALFA INH SOLN 1 MG/ML 2.5 ML AMP 2.5 MG INHALATION ×2 (10:32→20:19)
--- NOTE | 2023-05-15 11:50 | WPDINTPN ---
Progress Note: A&P Assessment and Plan (1) Acute respiratory failure: Code(s): J96.00 - Acute respiratory failure, unspecified whether with hypoxia or hypercapnia Status: Acute Assessment and Plan: 05/13: Patient collapsed outside a gas station, when EMS arrived was found to have agonal breathing, Narcan was given with no improvement, patient was intubated, was agitated after intubation and self-extubated. EMS reintubate the patient brought him to the ER at [facility] -currently on CMV mode of ventilation, peep of 5, 50% FiO2 -chest x-ray this morning: Congestive changes and bilateral infiltrates and/atelectasis with little interval change since 05/14/2023?. -sedated with Versed propofol infusion, maintain RASS of 0 to -1 -daily sedation vacation -thick secretions noted from the ETT, -continue Pulmozyme, albuterol and Atrovent -05/14 sputum cultures with no organisms -05/14 no growth x2 -05/14: Urine cultures pending (2) Episode of unresponsiveness: Code(s): R40.4 - Transient alteration of awareness Status: Acute Assessment and Plan: Could be related to drug abuse, arrhythmias -troponin were negative x2, EKG showed sinus rhythm -continue to monitor cardiac monitoring (3) Drug overdose: Code(s): T50.901A - Poisoning by unspecified drugs, medicaments and biological substances, accidental (unintentional), initial encounter Status: Acute Assessment and Plan: Discussed with patient's Debby Smalls, she is in [place] and starting to drive back for [facility]. She stated that the patient has a history of methamphetamines and fentanyl abuse for which he was at the rehab. He may also have warrant and may go to skilled nursing and could have done drugs again after the left the rehab. -urine drug screen was positive for opioids, benzos and amphetamine -patient adequately fluid-resuscitated since admission -decreased maintenance IV fluids, (4) Elevated LFTs: Code(s): R79.89 - Other specified abnormal findings of blood chemistry Status: Acute Assessment and Plan: Could be related to do drugs, hypovolemia -LFTs normalized -continue to monitor Plan DVT prophylaxis: Lovenox Stress ulcer prophylaxis: Protonix Nutrition: Tolerating tube feeds Code Status: Full code Critical Care Time Spent: 33 minutes 07/29: Discussed with Debby Smalls, updated her with patient's condition and plan of care. I did discuss the radiology and the lab reports. She is aware that he has thick secretions as receiving IV antibiotics. Due to a high probability of clinically significant, life threatening deterioration, the patient required my highest level of preparedness to intervene emergently and I personally spent this critical care time directly and personally managing the patient. This critical care time included obtaining a history; examining the patient; pulse oximetry; ordering and review of studies; arranging urgent treatment with development of a management plan; evaluation of patient's response to treatment; frequent reassessment; and discussions with other providers. It was exclusive of separately billable procedures and treating other patients and teaching time. Please see Assessment and Plan section and the rest of the note for further information on patient assessment and treatment This dictation may have been done utilizing a voice recognition system. Attempts have been made to correct errors. However, there may be uncorrected grammatical, spelling, and recognitions errors present. Subjective Date/time seen: 05/15/23 11:50 Interval history: Reason for consult: Altered mental status, unresponsiveness, respiratory failure, possible drug overdose 05/15/2023: Patient seen and examined the ICU, remains intubated on CMV mode of ventilation, peep of 5, 50% FiO2. Sedated propofol 35 mcg/kg/min, Versed 5 mg/hr infusions. Upon holding the sedation patient date follows s
[2023-05-15 11:55] LABS: Glucose Point of Care 111 mg/dl (65-105)
[2023-05-15] MEDS: PROPOFOL IV EMULSION 100 ML 32.66 MG IV CONT (12:32)
[2023-05-15] MEDS: CENTRAL LINE FLUSH 10 ML IV PUSH ×2 (12:36→21:22)
[2023-05-15] MEDS: MIDAZOLAM 100MG/NS 100ML(*CRX) 100 MG/100 ML BAG 6 MG IV CONT (14:12)
[2023-05-15] MEDS: FENTANYL 2,500MCG/NS250ML(*CRX 2,500 MCG/250 ML BAG IV CONT (14:14)
--- NOTE | 2023-05-15 15:24 | PM.IMPN ---
Progress Note: A&P Assessment and Plan (1) Acute respiratory failure: Code(s): J96.00 - Acute respiratory failure, unspecified whether with hypoxia or hypercapnia Status: Acute Assessment and Plan: ED-HPI narrative: 41 year old male unknown past medical history brought in by EMS for unresponsiveness. Per EMS, bystanders noted patient was coming out of a gas station when he suddenly collapsed. When EMS on scene, narcan was given without improvement. Patient with agonal breathing so patient was intubated with etomidate, right IO placed. Patient was agitated, self-extubated, EMS re-intubated patient. A: ETT in place 8.0, continuous capnography B: Bilateral breath sounds C: peripheral pulses palpable, BP 120/80s E: No gross evidence of trauma 05/14/2023 interval history: 43-year-old male with history drug abuse and presented with a respiratory failure on ventilator unable to provide any history review of symptom, patient has a thick secretion from ET tube and sputum culture as ordered patient is being treated with azithromycin vancomycin and ampicillin, patient is seen by distribution sales manager and appreciate. 05/15/2023: History of drug abuse present with respiratory failure on ventilator. On broad-spectrum antibiotics per distribution sales manager. Continue current management (2) Drug overdose: Code(s): T50.901A - Poisoning by unspecified drugs, medicaments and biological substances, accidental (unintentional), initial encounter Status: Acute Assessment and Plan: patient with history of illicit drug abuse was just recently discharged from rehab however patient is positive for benzos and amphetamines (3) Elevated LFTs: Code(s): R79.89 - Other specified abnormal findings of blood chemistry Status: Acute Assessment and Plan: most likely secondary to fatty liver and drug abuse (4) Episode of unresponsiveness: Code(s): R40.4 - Transient alteration of awareness Status: Acute Assessment and Plan: secondary to drug overdose Subjective Date/time seen: 05/15/23 15:24 Interval history: ED-HPI narrative: 41 year old male unknown past medical history brought in by EMS for unresponsiveness. Per EMS, bystanders noted patient was coming out of a gas station when he suddenly collapsed. When EMS on scene, narcan was given without improvement. Patient with agonal breathing so patient was intubated with etomidate, right IO placed. Patient was agitated, self-extubated, EMS re-intubated patient. A: ETT in place 8.0, continuous capnography B: Bilateral breath sounds C: peripheral pulses palpable, BP 120/80s E: No gross evidence of trauma 05/14/2023 interval history: 43-year-old male with history drug abuse and presented with a respiratory failure on ventilator unable to provide any history review of symptom, patient has a thick secretion from ET tube and sputum culture as ordered patient is being treated with azithromycin vancomycin and ampicillin, patient is seen by distribution sales manager and appreciate. 05/15/2023: Patient remains intubated. Discussed with the family at bedside. Events noted. Review of Systems Review of Systems: ROS unobtainable: Yes unobtainable due to endotracheal tube and unobtainable due to mental status Exam Narrative: Morbidly obese Patient is comfortable, NAD HEENT: ET tube in place LUNGS: normal respiratory effort ABD: distended Lower extremities: no edema SKIN: nonjaundiced Neuro: on vent and sedated. Objective Data Vital Signs Vital Signs: Vital Signs - 24 hr 05/14/23 16:25 05/14/23 16:57 05/14/23 17:00 Temperature Pulse Rate 97 95 95 Respiratory Rate 22 H 22 H Blood Pressure Pulse Oximetry 97 Oxygen Delivery Mechanical Ventilation Fraction of Inspired Oxygen 50 05/14/23 17:01 05/14/23 16:00 05/14/23 16:00 Temperature Pulse Rate 95 95 Respiratory Rate 22 H Blood Pressure Pulse Oximetry Oxygen Delivery Fr
[2023-05-15] MEDS: PROPOFOL IV EMULSION 100 ML 40.82 MG IV CONT ×3 (15:47→19:38)
[2023-05-15 17:22] LABS: Glucose Point of Care 123 mg/dl (65-105)
[2023-05-15 21:56] LABS: Vancomycin Trough 7.8 ug/mL (10.0-20.0)
[2023-05-15 23:50] LABS: Glucose Point of Care 143 mg/dl (65-105)
[2023-05-16] VITALS (34 sets, daily range): BP systolic 116–138; BP diastolic 68–81; PULSE 74–92; RESP 20–29; TEMP 36.3–37.9; O2SAT 90–99
[2023-05-16] MEDS: PROPOFOL IV EMULSION 100 ML 28.58 MG IV CONT ×5 (02:00→14:32)
[2023-05-16] MEDS: IPRATROPIUM BR 0.02% INH SOLN 0.5 MG/2.5 ML VIAL INHALATION ×4 (02:35→20:02)
[2023-05-16] MEDS: ALBUTEROL SULFATE NEB 2.5 MG/3 ML INH INHALATION ×4 (02:35→20:02)
[2023-05-16 04:05] LABS: Basophils Absolute Auto 0.1 K/mm3 (0.0-0.1); Basophils Percent Auto 0.8 % (0.2-1.2); Eosinophils Absolute Auto 0.6 K/mm3 (0-0.3); Eosinophils Percent Auto 8.9 % (0-4.4); Hematocrit 32.3 % (42.0-52.0); Hemoglobin 10.4 g/dL (14.0-18.0); Immature Granulocyte Absolute 0.03 K/mm3 (0.00-0.031); Immature Granulocyte Percent A 0.5 % (0-0.5); Lymphocytes Absolute Auto 1.15 K/mm3 (0.9-3.2); Lymphocytes Percent Auto 17.6 % (18.3-44.2); Mean Corpuscular HGB Conc 32.2 g/dl (32-36); Mean Corpuscular Hemoglobin 30.1 pg (26-34); Mean Corpuscular Volume 93.6 fl (80-100); Mean Platelet Volume 10.4 fl (7.4-10.4); Monocytes Absolute Auto 0.6 K/mm3 (0.1-0.6); Monocytes Percent Auto 9.5 % (2.6-8.5); Neutrophils Absolute Auto 4.1 K/mm3 (1.3-6.7); Neutrophils Percent Auto 62.7 % (45.5-73.1); Platelet Count Result 214 k/mm3 (150-375); Red Blood Count 3.45 M/mm3 (4.6-6.20); Red Cell Distribution Width 13.7 % (11.5-14.5); White Blood Count 6.5 K/mm3 (4.5-10.0)
[2023-05-16 04:13] LABS: Alanine Aminotransferase 25 U/L (6-50); Albumin Level 3.1 g/dL (3.5-5.1); Alkaline Phosphatase 36 U/L (38-126); Anion Gap 2 mmol/L (8-16); Aspartate Amino Transferase 28 U/L (17-59); Bilirubin,Total 0.5 mg/dL (0.2-1.3); Blood Urea Nitrogen 7 mg/dL (9-20); Calcium 8.1 mg/dL (8.4-10.2); Carbon Dioxide 29 mmol/L (22-30); Chloride 104 mmol/L (98-107); Creatine Kinase 54 U/L (55-170); Estimated CRCL calculation 255 ml/min; Estimated Glomerular Filt Rate > 60; Glucose 99 mg/dL (65-110); Magnesium 1.9 mg/dL (1.6-2.3); Phosphorus 4.6 mg/dL (2.5-4.5); Potassium 3.3 mmol/L (3.4-5.0); Sodium 135 mmol/L (137-145)
[2023-05-16] MEDS: LACTATED RINGERS 1,000 ML 50 ML IV CONT (04:43)
[2023-05-16] MEDS: MAGNESIUM SULF 2 GM/WATER 50ML 2 GM/50 ML BAG IVPB ×2 (04:43→12:16)
[2023-05-16] MEDS: POTASSIUM CHLORIDE 20 MEQ PACKET (FOR LIQUID) 40 MEQ FEED TUBE ×3 (04:43→16:02)
[2023-05-16] MEDS: KCL 40 MEQ/WATER 100 ML 100 ML 25 ML IVPB ×2 (04:49→12:15)
[2023-05-16] MEDS: AMPICILLIN SULB 3 GM/NS 100 ML 3 GM/100 ML VIAL IVPB (05:02)
[2023-05-16] MEDS: CENTRAL LINE FLUSH 10 ML IV PUSH ×3 (05:03→23:13)
[2023-05-16 05:17] LABS: Glucose Point of Care 92 mg/dl (65-105)
[2023-05-16 05:40] LABS: Alveolar/Arterial O2 Gradient 234.4 mmHg; Base Excess ABG 2.3 mEq/l (+/-2.0); Carboxyhemoglobin 0.2 % THb (0-2.0); Fractional Inspired Oxygen 50 %; HCO3 ABG 25.8 mEq/l (22.0-26.0); Methemoglobin ABG 0.2 %THb (0-1.5); Oxygen Saturation ABG 96.6 % (95.0-100.0); PCO2 ABG 36.5 mmHg (35.0-45.0); PO2 FiO2 Ratio Arterial Blood 1.62 %; Reduced Hemoglobin 4.6 %THb (0-5.0); Total Hemoglobin 11.9 g/dL (12.0-18.0); pH ABG 7.468 (7.350-7.450)
[2023-05-16 05:42] LABS: Arterial Blood Gas PEEP 5 cmH2O; Arterial Blood Gas Tidal Volume 500 ml; Arterial Blood Gas Vent Mode CMV; Arterial Blood Gas Ventilator rate 20 /MIN; Device VENTILATOR; Modified Allen's Test Pass; Site Drawn RIGHT RADIAL
[2023-05-16] MEDS: MINERAL OIL/WHITE PETROLATUM OINTMENT 1 APPLIC EACH EYE ×2 (06:54→21:20)
[2023-05-16] MEDS: PANTOPRAZOLE SODIUM IV 40 MG VIAL IV PUSH (07:52)
[2023-05-16] MEDS: ENOXAPARIN 40 MG/0.4 ML SYRINGE SUB-Q (07:52)
[2023-05-16] MEDS: FUROSEMIDE INJ 40 MG/4 ML VIAL IV PUSH (07:54)
[2023-05-16] MEDS: AZITHROMYCIN 500 MG/NS 250 ML 500 MG/250 ML BAG 250 MG IVPB (07:56)
[2023-05-16] MEDS: CEFEPIME 2 GM/NS 50 ML 2 GM/50 ML BAG IVPB ×3 (07:57→23:47)
[2023-05-16] MEDS: MIDAZOLAM 100MG/NS 100ML(*CRX) 100 MG/100 ML BAG IV CONT (08:00)
[2023-05-16] MEDS: DORNASE ALFA INH SOLN 1 MG/ML 2.5 ML AMP 2.5 MG INHALATION ×2 (08:31→20:02)
--- NOTE | 2023-05-16 10:58 | WPDINTPN ---
Progress Note: A&P Assessment and Plan (1) Acute respiratory failure: Code(s): J96.00 - Acute respiratory failure, unspecified whether with hypoxia or hypercapnia Status: Acute Assessment and Plan: 05/13: Patient collapsed outside a gas station, when EMS arrived was found to have agonal breathing, Narcan was given with no improvement, patient was intubated, was agitated after intubation and self-extubated. EMS reintubate the patient brought him to the ER at [facility] -currently on CMV mode of ventilation, peep of 5, 50% FiO2 -chest x-ray this morning:Diffusely increased prominent bilateral pulmonary infiltrates suggesting increased pulmonary edema since 05/15/2023 Lasix 40 mg IV x1 today -continue cefepime (05/16) vancomycin and azithromycin (05/14) -analgosedation with fentanyl, Versed, propofol infusion, maintain RASS of 0 to -1 -daily sedation vacation -thick secretions noted from the ETT, -continue Pulmozyme, albuterol and Atrovent -05/14 sputum cultures negative -05/14 blood cultures no growth x2 -05/14: Urine cultures no growth -05/14: MRSA screen negative -continue bronchodilators and Pulmozyme (2) Episode of unresponsiveness: Code(s): R40.4 - Transient alteration of awareness Status: Acute Assessment and Plan: Could be related to drug abuse, arrhythmias -troponin were negative x2, EKG showed sinus rhythm -continue to monitor cardiac monitoring (3) Drug overdose: Code(s): T50.901A - Poisoning by unspecified drugs, medicaments and biological substances, accidental (unintentional), initial encounter Status: Acute Assessment and Plan: Discussed with patient's Debby Smalls, she is in [place] and starting to drive back for [facility]. She stated that the patient has a history of methamphetamines and fentanyl abuse for which he was at the rehab. He may also have warrant and may go to correction and could have done drugs again after the left the rehab. -urine drug screen was positive for opioids, benzos and amphetamine -patient adequately fluid-resuscitated since admission -off all IV fluids (05/15) Echocardiogram 05/13/2023: 1. Technically difficult study with limited views. ? 2. Left ventricular chamber dimension is normal. ? 3. Left ventricular systolic function is normal, estimated at 55-60%. ? 4. The left ventricular diastolic function is grade I diastolic dysfunction. ? 5. Right ventricular systolic function is normal. ? 6. There is mild tricuspid valve regurgitation (4) Elevated LFTs: Code(s): R79.89 - Other specified abnormal findings of blood chemistry Status: Acute Assessment and Plan: Could be related to do drugs, hypovolemia -LFTs normalized -continue to monitor (5) Electrolyte imbalance: Code(s): E87.8 - Other disorders of electrolyte and fluid balance, not elsewhere classified Status: Acute Assessment and Plan: Will replace potassium and magnesium aggressively as patient had a 17 beat run of V-tach last night Plan DVT prophylaxis: Lovenox Stress ulcer prophylaxis: Protonix Nutrition: Tolerating tube feeds Code Status: Full code Critical Care Time Spent: 32 minutes 05/16: Discussed with Debby Smalls, updated her with patient's condition and plan of care. I did discuss the radiology and the lab reports. She is aware that he has thick secretions as receiving IV antibiotics. Due to a high probability of clinically significant, life threatening deterioration, the patient required my highest level of preparedness to intervene emergently and I personally spent this critical care time directly and personally managing the patient. This critical care time included obtaining a history; examining the patient; pulse oximetry; ordering and review of studies; arranging urgent treatment with development of a management plan; evaluation of patient's response to treatment; frequent reassessment; and discussion
[2023-05-16 12:26] LABS: Glucose Point of Care 115 mg/dl (65-105)
--- NOTE | 2023-05-16 14:13 | PM.IMPN ---
Progress Note: A&P Assessment and Plan (1) Acute respiratory failure: Code(s): J96.00 - Acute respiratory failure, unspecified whether with hypoxia or hypercapnia Status: Acute Assessment and Plan: ED-HPI narrative: 41 year old male unknown past medical history brought in by EMS for unresponsiveness. Per EMS, bystanders noted patient was coming out of a gas station when he suddenly collapsed. When EMS on scene, narcan was given without improvement. Patient with agonal breathing so patient was intubated with etomidate, right IO placed. Patient was agitated, self-extubated, EMS re-intubated patient. A: ETT in place 8.0, continuous capnography B: Bilateral breath sounds C: peripheral pulses palpable, BP 120/80s E: No gross evidence of trauma 05/14/2023 interval history: 43-year-old male with history drug abuse and presented with a respiratory failure on ventilator unable to provide any history review of symptom, patient has a thick secretion from ET tube and sputum culture as ordered patient is being treated with azithromycin vancomycin and ampicillin, patient is seen by balance wheel hand filer and appreciate. 05/15/2023: History of drug abuse present with respiratory failure on ventilator. On broad-spectrum antibiotics per balance wheel hand filer. Continue current management 05/16/2023: History of drug abuse presented with respiratory failure on ventilator. On broad-spectrum antibiotics per balance wheel hand filer diuresis ordered due to pulmonary edema findings chest x-ray and labs reviewed. Nonsustained ventricular tachycardia replace electrolytes and continue to monitor. Continue current management. Vented and sedated (2) Drug overdose: Code(s): T50.901A - Poisoning by unspecified drugs, medicaments and biological substances, accidental (unintentional), initial encounter Status: Acute Assessment and Plan: patient with history of illicit drug abuse was just recently discharged from rehab however patient is positive for benzos and amphetamines (3) Elevated LFTs: Code(s): R79.89 - Other specified abnormal findings of blood chemistry Status: Acute Assessment and Plan: most likely secondary to fatty liver and drug abuse (4) Episode of unresponsiveness: Code(s): R40.4 - Transient alteration of awareness Status: Acute Assessment and Plan: secondary to drug overdose Subjective Date/time seen: 05/16/23 14:13 Interval history: ED-HPI narrative: 41 year old male unknown past medical history brought in by EMS for unresponsiveness. Per EMS, bystanders noted patient was coming out of a gas station when he suddenly collapsed. When EMS on scene, narcan was given without improvement. Patient with agonal breathing so patient was intubated with etomidate, right IO placed. Patient was agitated, self-extubated, EMS re-intubated patient. A: ETT in place 8.0, continuous capnography B: Bilateral breath sounds C: peripheral pulses palpable, BP 120/80s E: No gross evidence of trauma 05/14/2023 interval history: 43-year-old male with history drug abuse and presented with a respiratory failure on ventilator unable to provide any history review of symptom, patient has a thick secretion from ET tube and sputum culture as ordered patient is being treated with azithromycin vancomycin and ampicillin, patient is seen by balance wheel hand filer and appreciate. 05/15/2023: Patient remains intubated. Discussed with the family at bedside. Events noted. 05/16/2023: Fever has come down. Intermittent nonsustained ventricular tachycardia on telemetry. Remains intubated and sedated. Review of Systems Review of Systems: ROS unobtainable: Yes unobtainable due to mental status Exam Narrative: Morbidly obese Patient is comfortable, NAD HEENT: ET tube in place LUNGS: normal respiratory effort ABD: distended Lower extremities: no edema SKIN: nonjaundiced Neuro: on vent and sedated. Objective Data Vital Signs V
[2023-05-16] MEDS: FENTANYL 2,500MCG/NS250ML(*CRX 2,500 MCG/250 ML BAG IV CONT (14:33)
[2023-05-16] MEDS: PROPOFOL IV EMULSION 100 ML 32.66 MG IV CONT (17:04)
[2023-05-16 17:13] LABS: Glucose Point of Care 179 mg/dl (65-105)
[2023-05-16 19:03] LABS: Vancomycin Peak 33.3 ug/mL (20-40)
[2023-05-16] MEDS: PROPOFOL IV EMULSION 100 ML 24.49 MG IV CONT ×2 (23:12→23:46)
[2023-05-16 23:14] LABS: Vancomycin Trough 17.2 ug/mL (10.0-20.0)
[2023-05-17] VITALS (29 sets, daily range): BP systolic 108–152; BP diastolic 61–102; PULSE 0–90; RESP 16–28; TEMP 36.9–38; O2SAT 92–100
[2023-05-17] MEDS: ALBUTEROL SULFATE NEB 2.5 MG/3 ML INH INHALATION ×4 (01:24→20:24)
[2023-05-17] MEDS: IPRATROPIUM BR 0.02% INH SOLN 0.5 MG/2.5 ML VIAL INHALATION ×4 (01:24→20:24)
[2023-05-17] MEDS: PROPOFOL IV EMULSION 100 ML 32.66 MG IV CONT ×5 (04:35→22:12)
[2023-05-17 04:45] LABS: Alanine Aminotransferase 26 U/L (6-50); Albumin Level 3.4 g/dL (3.5-5.1); Alkaline Phosphatase 41 U/L (38-126); Anion Gap 7 mmol/L (8-16); Aspartate Amino Transferase 25 U/L (17-59); Bilirubin,Total 0.4 mg/dL (0.2-1.3); Blood Urea Nitrogen 11 mg/dL (9-20); Calcium 8.5 mg/dL (8.4-10.2); Carbon Dioxide 29 mmol/L (22-30); Chloride 103 mmol/L (98-107); Creatine Kinase 59 U/L (55-170); Estimated CRCL calculation 218 ml/min; Estimated Glomerular Filt Rate > 60; Glucose 119 mg/dL (65-110); Phosphorus 5.2 mg/dL (2.5-4.5); Potassium 3.9 mmol/L (3.4-5.0); Sodium 139 mmol/L (137-145); Triglycerides 179 mg/dL (<150)
[2023-05-17 05:22] LABS: Glucose Point of Care 91 mg/dl (65-105)
[2023-05-17 05:32] LABS: Basophils Absolute Auto 0.1 K/mm3 (0.0-0.1); Basophils Percent Auto 0.7 % (0.2-1.2); Eosinophils Absolute Auto 0.7 K/mm3 (0-0.3); Eosinophils Percent Auto 7.1 % (0-4.4); Hematocrit 34.5 % (42.0-52.0); Hemoglobin 10.9 g/dL (14.0-18.0); Immature Granulocyte Absolute 0.06 K/mm3 (0.00-0.031); Immature Granulocyte Percent A 0.6 % (0-0.5); Lymphocytes Absolute Auto 1.52 K/mm3 (0.9-3.2); Lymphocytes Percent Auto 15.8 % (18.3-44.2); Mean Corpuscular HGB Conc 31.6 g/dl (32-36); Mean Corpuscular Hemoglobin 29.8 pg (26-34); Mean Corpuscular Volume 94.3 fl (80-100); Mean Platelet Volume 10.8 fl (7.4-10.4); Monocytes Absolute Auto 0.9 K/mm3 (0.1-0.6); Monocytes Percent Auto 9.5 % (2.6-8.5); Neutrophils Absolute Auto 6.4 K/mm3 (1.3-6.7); Neutrophils Percent Auto 66.3 % (45.5-73.1); Platelet Count Result 286 k/mm3 (150-375); Red Blood Count 3.66 M/mm3 (4.6-6.20); Red Cell Distribution Width 13.8 % (11.5-14.5); White Blood Count 9.6 K/mm3 (4.5-10.0)
[2023-05-17] MEDS: MIDAZOLAM 100MG/NS 100ML(*CRX) 100 MG/100 ML BAG IV CONT (05:33)
[2023-05-17] MEDS: CENTRAL LINE FLUSH 10 ML IV PUSH ×3 (05:34→21:13)
[2023-05-17 05:39] LABS: Alveolar/Arterial O2 Gradient 315.5 mmHg; Base Excess ABG 2.8 mEq/l (+/-2.0); Carboxyhemoglobin 0.3 % THb (0-2.0); Device VENTILATOR; Fractional Inspired Oxygen 60 %; HCO3 ABG 27.2 mEq/l (22.0-26.0); Methemoglobin ABG 0.4 %THb (0-1.5); Modified Allen's Test Unable to perform; Oxygen Content ABG 17.9 %vol (16.0-22.0); Oxyhemoglobin 91.6 % THb (90.0-100.0); PCO2 ABG 40.9 mmHg (35.0-45.0); PO2 ABG 67.3 mmHg (80.0-100.0); PO2 FiO2 Ratio Arterial Blood 1.12 %; Reduced Hemoglobin 7.7 %THb (0-5.0); Site Drawn RIGHT RADIAL; Total Hemoglobin 13.9 g/dL (12.0-18.0)
[2023-05-17 05:40] LABS: Arterial Blood Gas PEEP 5 cmH2O; Arterial Blood Gas Tidal Volume 500 ml; Arterial Blood Gas Vent Mode CMV; Arterial Blood Gas Ventilator rate 20 /MIN
[2023-05-17 06:39] LABS: Glucose Point of Care 84 mg/dl (65-105)
[2023-05-17] MEDS: DORNASE ALFA INH SOLN 1 MG/ML 2.5 ML AMP 2.5 MG INHALATION (07:10)
[2023-05-17] MEDS: CEFEPIME 2 GM/NS 50 ML 2 GM/50 ML BAG IVPB ×2 (08:06→16:27)
[2023-05-17] MEDS: AZITHROMYCIN 500 MG/NS 250 ML 500 MG/250 ML BAG 250 MG IVPB (08:35)
[2023-05-17] MEDS: ENOXAPARIN 40 MG/0.4 ML SYRINGE SUB-Q (08:36)
[2023-05-17] MEDS: MINERAL OIL/WHITE PETROLATUM OINTMENT 1 APPLIC EACH EYE ×2 (08:37→21:14)
[2023-05-17] MEDS: PANTOPRAZOLE SODIUM IV 40 MG VIAL IV PUSH (08:37)
[2023-05-17] MEDS: POTASSIUM CHLORIDE 20 MEQ PACKET (FOR LIQUID) 40 MEQ FEED TUBE ×2 (08:37→16:27)
[2023-05-17] MEDS: FUROSEMIDE INJ 40 MG/4 ML VIAL IV PUSH (08:38)
[2023-05-17 09:40] LABS: NT Pro B Type Natriuretic Pept 150 pg/mL (19.9-100)
--- NOTE | 2023-05-17 10:54 | PCFNICU ---
ICU Rounding Note: Pt current nutrition is Vital AF 1.2 @ 40 ml/h: 1056 kcal, 66 g protein, 713 ml free water. Prosource TF BID for additional 180 kcal and 40 g protein, total 1236 kcal, 106 g protein, 713 ml free water. Flush 30 ml q 4 h. Propofol running at 32.66 ml/h=862 kcal. Total kcal 2446 kcal/d. Nutrition recommendation: Will titrate TF rate up as propofol titrates down to meet protein energy needs. Last recorded weight is 148 kg. +1 kg since 05/13/23 Bowel Motility: Last BM 05/16/23 Labs Reviewed: Hgb 10.9, Hct 34.5, Alb 3.4, Cre 0.6, BNP 150, TRIG 179, PO4 5.2 Meds Noted: Propofol (held), Lovenox, Versed (held), fentanyl (held), protonix, cefepime, vancomycin Skin: WNL, no breakdown Additional Notes: Remains intubated on vent. Meeting 100% kcal needs (CAMPBELL) and 100% estimated protein needs with tube feeding. TRIG being monitored. Sedation is on hold Following daily in ICU rounds. Will monitor weight,labs, tube feeding tolerance, skin every Wednesday and Wednesday. .
[2023-05-17] MEDS: PROPOFOL IV EMULSION 100 ML 40 MG IV CONT ×3 (11:09→16:39)
--- NOTE | 2023-05-17 11:17 | WPDINTPN ---
Progress Note: A&P Assessment and Plan (1) Acute respiratory failure: Code(s): J96.00 - Acute respiratory failure, unspecified whether with hypoxia or hypercapnia Status: Acute Assessment and Plan: 05/13: Patient collapsed outside a gas station, when EMS arrived was found to have agonal breathing, Narcan was given with no improvement, patient was intubated, was agitated after intubation and self-extubated. EMS reintubate the patient brought him to the ER at [facility] -currently on CMV mode of ventilation, peep of 5, 60 % FiO2-increase PEEP to 8 try to wean FiO2 -chest x-ray this morning reviewed -continue Lasix 40 mg IV x1 today -continue cefepime (05/16) and vancomycin. patient will complete a 5 day course of azithromycin (05/14) today -analgosedation with fentanyl, Versed, propofol infusion, maintain RASS of 0 to -1 with daily sedation vacation -thick secretions noted from the ETT, -continue Pulmozyme, albuterol and Atrovent -05/14 sputum cultures growing Staph aureus with pending susceptibilities -05/14 blood cultures no growth x2 -05/14: Urine cultures no growth -05/14: MRSA screen negative -continue bronchodilators and Pulmozyme (2) Episode of unresponsiveness: Code(s): R40.4 - Transient alteration of awareness Status: Acute Assessment and Plan: Could be related to drug abuse, arrhythmias -troponin were negative x2, EKG showed sinus rhythm -continue to monitor cardiac monitoring -head CT was negative for any acute change on admission (3) Drug overdose: Code(s): T50.901A - Poisoning by unspecified drugs, medicaments and biological substances, accidental (unintentional), initial encounter Status: Acute Assessment and Plan: Dr. Brito discussed with patient's Debby Smalls. She stated that the patient has a history of methamphetamines and fentanyl abuse for which he was at the rehab. He may also have warrant and may go to halfway and could have done drugs again after the left the rehab. -urine drug screen was positive for opioids, benzos and amphetamine -patient adequately fluid-resuscitated since admission -off all IV fluids (05/15) Echocardiogram 05/13/2023: 1. Technically difficult study with limited views. ? 2. Left ventricular chamber dimension is normal. ? 3. Left ventricular systolic function is normal, estimated at 55-60%. ? 4. The left ventricular diastolic function is grade I diastolic dysfunction. ? 5. Right ventricular systolic function is normal. ? 6. There is mild tricuspid valve regurgitation (4) Elevated LFTs: Code(s): R79.89 - Other specified abnormal findings of blood chemistry Status: Acute Assessment and Plan: Could be related to do drugs, hypovolemia -LFTs normalized -continue to monitor (5) Electrolyte imbalance: Code(s): E87.8 - Other disorders of electrolyte and fluid balance, not elsewhere classified Status: Acute Assessment and Plan: Patient receiving potassium replacement Plan DVT prophylaxis: Lovenox Stress ulcer prophylaxis: Protonix Nutrition: Tolerating tube feeds Code Status: Full code I spoke to patient's at bedside and updated her with patient's current status including respiratory failure, oxygen requirement, treatment of pneumonia and diuretics. I answered all her questions Critical Care Time Spent: 35 minutes Due to a high probability of clinically significant, life threatening deterioration, the patient required my highest level of preparedness to intervene emergently and I personally spent this critical care time directly and personally managing the patient. This critical care time included obtaining a history; examining the patient; pulse oximetry; ordering and review of studies; arranging urgent treatment with development of a management plan; evaluation of patient's response to treatment; frequent reassessment; and discussions with other providers. It was exclusive of
[2023-05-17 12:29] LABS: Glucose Point of Care 93 mg/dl (65-105)
[2023-05-17 18:12] LABS: Glucose Point of Care 130 mg/dl (65-105)
[2023-05-18] VITALS (37 sets, daily range): BP systolic 118–150; BP diastolic 57–95; PULSE 64–93; RESP 16–30; TEMP 37.4–37.8; O2SAT 74–97
[2023-05-18] MEDS: PROPOFOL IV EMULSION 100 ML 32.66 MG IV CONT ×2 (01:13→04:20)
[2023-05-18] MEDS: CEFEPIME 2 GM/NS 50 ML 2 GM/50 ML BAG IVPB ×3 (01:14→15:57)
[2023-05-18] MEDS: ALBUTEROL SULFATE NEB 2.5 MG/3 ML INH INHALATION ×4 (01:31→20:24)
[2023-05-18] MEDS: IPRATROPIUM BR 0.02% INH SOLN 0.5 MG/2.5 ML VIAL INHALATION ×4 (01:31→20:24)
[2023-05-18 01:50] LABS: Glucose Point of Care 118 mg/dl (65-105)
[2023-05-18 05:23] LABS: Alveolar/Arterial O2 Gradient 319.7 mmHg; Base Excess ABG 3.4 mEq/l (+/-2.0); Carboxyhemoglobin 0.3 % THb (0-2.0); Fractional Inspired Oxygen 60 %; HCO3 ABG 27.4 mEq/l (22.0-26.0); Methemoglobin ABG 0.3 %THb (0-1.5); Oxygen Content ABG 16.2 %vol (16.0-22.0); Oxygen Saturation ABG 93.6 % (95.0-100.0); Oxyhemoglobin 91.2 % THb (90.0-100.0); PCO2 ABG 39.7 mmHg (35.0-45.0); PO2 ABG 64.4 mmHg (80.0-100.0); PO2 FiO2 Ratio Arterial Blood 1.07 %; Reduced Hemoglobin 8.2 %THb (0-5.0); Total Hemoglobin 12.6 g/dL (12.0-18.0); pH ABG 7.457 (7.350-7.450)
[2023-05-18 05:24] LABS: Modified Allen's Test Pass; Site Drawn LEFT RADIAL
[2023-05-18 05:25] LABS: Arterial Blood Gas PEEP 8 cmH2O; Arterial Blood Gas Tidal Volume 500 ml; Arterial Blood Gas Vent Mode CMV; Arterial Blood Gas Ventilator rate 20 /MIN; Device VENTILATOR
[2023-05-18] MEDS: CENTRAL LINE FLUSH 10 ML IV PUSH ×3 (05:44→22:04)
[2023-05-18 05:48] LABS: Basophils Absolute Auto 0.1 K/mm3 (0.0-0.1); Basophils Percent Auto 0.9 % (0.2-1.2); Eosinophils Absolute Auto 0.9 K/mm3 (0-0.3); Eosinophils Percent Auto 9.9 % (0-4.4); Hematocrit 34.5 % (42.0-52.0); Hemoglobin 11.2 g/dL (14.0-18.0); Immature Granulocyte Absolute 0.08 K/mm3 (0.00-0.031); Immature Granulocyte Percent A 0.9 % (0-0.5); Lymphocytes Absolute Auto 1.16 K/mm3 (0.9-3.2); Lymphocytes Percent Auto 13.5 % (18.3-44.2); Mean Corpuscular HGB Conc 32.5 g/dl (32-36); Mean Corpuscular Hemoglobin 30.7 pg (26-34); Mean Corpuscular Volume 94.5 fl (80-100); Mean Platelet Volume 9.6 fl (7.4-10.4); Monocytes Absolute Auto 0.9 K/mm3 (0.1-0.6); Monocytes Percent Auto 10.5 % (2.6-8.5); Neutrophils Absolute Auto 5.5 K/mm3 (1.3-6.7); Neutrophils Percent Auto 64.3 % (45.5-73.1); Platelet Count Result 295 k/mm3 (150-375); Red Blood Count 3.65 M/mm3 (4.6-6.20); White Blood Count 8.6 K/mm3 (4.5-10.0)
[2023-05-18 06:01] LABS: Alanine Aminotransferase 27 U/L (6-50); Albumin Level 3.5 g/dL (3.5-5.1); Alkaline Phosphatase 37 U/L (38-126); Anion Gap 4 mmol/L (8-16); Aspartate Amino Transferase 30 U/L (17-59); Bilirubin,Total 0.4 mg/dL (0.2-1.3); Blood Urea Nitrogen 15 mg/dL (9-20); Calcium 8.8 mg/dL (8.4-10.2); Carbon Dioxide 29 mmol/L (22-30); Chloride 104 mmol/L (98-107); Creatine Kinase 49 U/L (55-170); Estimated CRCL calculation 186 ml/min; Estimated Glomerular Filt Rate > 60; Glucose 103 mg/dL (65-110); Magnesium 1.9 mg/dL (1.6-2.3); Phosphorus 6.2 mg/dL (2.5-4.5); Sodium 137 mmol/L (137-145)
[2023-05-18 06:04] LABS: Glucose Point of Care 111 mg/dl (65-105)
[2023-05-18 08:17] LABS: Vancomycin Trough 16.2 ug/mL (10.0-20.0)
[2023-05-18] MEDS: FUROSEMIDE INJ 40 MG/4 ML VIAL IV PUSH (08:21)
[2023-05-18] MEDS: MINERAL OIL/WHITE PETROLATUM OINTMENT 1 APPLIC EACH EYE ×2 (08:31→20:26)
[2023-05-18] MEDS: PANTOPRAZOLE SODIUM IV 40 MG VIAL IV PUSH (08:31)
[2023-05-18] MEDS: ENOXAPARIN 40 MG/0.4 ML SYRINGE SUB-Q (08:31)
[2023-05-18] MEDS: AZITHROMYCIN 500 MG/NS 250 ML 500 MG/250 ML BAG 250 MG IVPB (08:32)
--- NOTE | 2023-05-18 09:38 | PCRCNOTE ---
Dr. Patterson placed pt on spont trial of 07/25 and 40% for 30mins from 0930 to 1000. Will repeat spont trial tomorrow (05/19) per Dr. Patterson.
[2023-05-18] MEDS: dexmedeTOMIDine 400 MCG/100 ML 400 MCG/100 ML BAG 7.53 MCG IV CONT ×2 (09:55→10:10)
--- NOTE | 2023-05-18 09:59 | WPDINTPN ---
Progress Note: A&P Assessment and Plan (1) Acute respiratory failure: Code(s): J96.00 - Acute respiratory failure, unspecified whether with hypoxia or hypercapnia Status: Acute Assessment and Plan: 05/13: Patient collapsed outside a gas station, when EMS arrived was found to have agonal breathing, Narcan was given with no improvement, patient was intubated, was agitated after intubation and self-extubated. EMS reintubate the patient brought him to the ER at [facility] -currently on CMV mode of ventilation, peep of 8 40% Decrease tidal volume to 450 mL 5/8 PSV weaning trial was performed per patient became tachypneic with respiratory rate above 30s. Patient tolerated pressure support of 10/8 for adequate RSBI she tolerated for 30 minutes. Will continue diuresis and trial again tomorrow. -will also start Precedex infusion for anxiolysis -chest x-ray this morning reviewed -continue cefepime (05/16). DC vancomycin. patient will complete a 5 day course of azithromycin (05/14) today -analgosedation with fentanyl, Versed, propofol infusion, maintain RASS of 0 to -1 with daily sedation vacation -thick secretions noted from the ETT, -continue Pulmozyme, albuterol and Atrovent -05/14 sputum cultures growing MSSA -05/14 blood cultures no growth x2 -05/14: Urine cultures no growth -05/14: MRSA screen negative -continue bronchodilators and Pulmozyme (2) Episode of unresponsiveness: Code(s): R40.4 - Transient alteration of awareness Status: Acute Assessment and Plan: Could be related to drug abuse, arrhythmias -troponin were negative x2, EKG showed sinus rhythm -continue to monitor cardiac monitoring -head CT was negative for any acute change on admission (3) Drug overdose: Code(s): T50.901A - Poisoning by unspecified drugs, medicaments and biological substances, accidental (unintentional), initial encounter Status: Acute Assessment and Plan: Dr. Brito discussed with patient's Debby Smalls. She stated that the patient has a history of methamphetamines and fentanyl abuse for which he was at the rehab. He may also have warrant and may go to group home and could have done drugs again after the left the rehab. -urine drug screen was positive for opioids, benzos and amphetamine -patient adequately fluid-resuscitated since admission -off all IV fluids (05/15) Echocardiogram 05/13/2023: 1. Technically difficult study with limited views. ? 2. Left ventricular chamber dimension is normal. ? 3. Left ventricular systolic function is normal, estimated at 55-60%. ? 4. The left ventricular diastolic function is grade I diastolic dysfunction. ? 5. Right ventricular systolic function is normal. ? 6. There is mild tricuspid valve regurgitation (4) Elevated LFTs: Code(s): R79.89 - Other specified abnormal findings of blood chemistry Status: Acute Assessment and Plan: Could be related to do drugs, hypovolemia -LFTs normalized -continue to monitor (5) Electrolyte imbalance: Code(s): E87.8 - Other disorders of electrolyte and fluid balance, not elsewhere classified Status: Acute Assessment and Plan: Patient receiving potassium replacement Plan DVT prophylaxis: Lovenox Stress ulcer prophylaxis: Protonix Nutrition: Tolerating tube feeds Code Status: Full code I spoke to patient's at bedside and updated her with patient's current status including respiratory failure, oxygen requirement, treatment of pneumonia and diuretics. I answered all her questions Critical Care Time Spent: 30 minutes Due to a high probability of clinically significant, life threatening deterioration, the patient required my highest level of preparedness to intervene emergently and I personally spent this critical care time directly and personally managing the patient. This critical care time included obtaining a history; examining the patient; pulse oximetry; ordering and
--- NOTE | 2023-05-18 11:12 | PCFNICU ---
ICU Rounding Note: Pt current nutrition is Vital AF 1.2 at 40 ml/hr with Prosource BID. Last recorded weight is 150.6 kg. Bowel Motility:+Bm reported 05/17 Labs Reviewed:Hgb 11.2,Hct 34.2 Meds Noted:Propofol at 40 ldwq=788 kcals,Fentanyl. Skin: WNL Additional Notes: Patient remains on mechanical vent. Tube feedings being tolerating of Vital AF 1.2 at 40 ml/hr with Protein Modular of Prosource BID providing an additional 160 kcals and 40 gms protein. Flush 30 ml q 4 hours. Plans to start decreasing Propofol. Agree with diet orders. Following daily in ICU rounds. Will monitor weight,labs, tube feeding tolerance, skin every Wednesday and Wednesday.
[2023-05-18 11:42] LABS: Glucose Point of Care 113 mg/dl (65-105)
[2023-05-18] MEDS: ACETAMINOPHEN ELIXIR 325 MG/10.15 ML UDC 650 MG FEED TUBE (16:45)
[2023-05-18 16:52] LABS: Glucose Point of Care 108 mg/dl (65-105)
--- NOTE | 2023-05-18 17:28 | WPDPN ---
Progress Note: A&P Assessment and Plan (1) Acute respiratory failure: Code(s): J96.00 - Acute respiratory failure, unspecified whether with hypoxia or hypercapnia Status: Acute Assessment and Plan: ED-[facility] narrative: 41 year old male unknown past medical history brought in by EMS for unresponsiveness. Per EMS, bystanders noted patient was coming out of a gas station when he suddenly collapsed. When EMS on scene, narcan was given without improvement. Patient with agonal breathing so patient was intubated with etomidate, right IO placed. Patient was agitated, self-extubated, EMS re-intubated patient. A: ETT in place 8.0, continuous capnography B: Bilateral breath sounds C: peripheral pulses palpable, BP 120/80s E: No gross evidence of trauma 05/14/2023 interval history: 43-year-old male with history drug abuse and presented with a respiratory failure on ventilator unable to provide any history review of symptom, patient has a thick secretion from ET tube and sputum culture as ordered patient is being treated with azithromycin vancomycin and ampicillin, patient is seen by wheat shipper and appreciate. 05/15/2023: History of drug abuse present with respiratory failure on ventilator. On broad-spectrum antibiotics per wheat shipper. Continue current management 05/16/2023: History of drug abuse presented with respiratory failure on ventilator. On broad-spectrum antibiotics per wheat shipper diuresis ordered due to pulmonary edema findings chest x-ray and labs reviewed. Nonsustained ventricular tachycardia replace electrolytes and continue to monitor. Continue current management. Vented and sedated. 05/18/2023 interval history: patient remains intubated and being treated with cefepime and being given weaning trial to wean off the ventilatory, patient is seen by wheat shipper, will monitor. (2) Drug overdose: Code(s): T50.901A - Poisoning by unspecified drugs, medicaments and biological substances, accidental (unintentional), initial encounter Status: Acute Assessment and Plan: patient with history of illicit drug abuse was just recently discharged from rehab however patient is positive for benzos and amphetamines (3) Elevated LFTs: Code(s): R79.89 - Other specified abnormal findings of blood chemistry Status: Acute Assessment and Plan: most likely secondary to fatty liver and drug abuse (4) Episode of unresponsiveness: Code(s): R40.4 - Transient alteration of awareness Status: Acute Assessment and Plan: secondary to drug overdose Subjective Date/time seen: 05/18/23 17:28 Interval history: 05/18/2023 interval history: patient remains intubated and being treated with cefepime and being given weaning trial to wean off the ventilatory, patient is seen by wheat shipper, will monitor. Review of Systems Review of Systems: ROS unobtainable: Yes unobtainable due to endotracheal tube Exam Narrative: Morbidly obese Patient is comfortable, NAD HEENT: ET tube in place LUNGS: normal respiratory effort ABD: distended Lower extremities: no edema SKIN: nonjaundiced Neuro: on vent and sedated. Objective Data Vital Signs Vital Signs: Vital Signs - 24 hr 05/17/23 18:00 05/17/23 18:00 05/17/23 20:24 Temperature 99.8 F H Pulse Rate 82 82 84 Respiratory Rate 16 24 H Blood Pressure 133/71 Pulse Oximetry 100 Oxygen Delivery Fraction of Inspired Oxygen 05/17/23 20:28 05/17/23 21:00 05/17/23 20:00 Temperature Pulse Rate 83 85 81 Respiratory Rate 23 H Blood Pressure Pulse Oximetry 100 Oxygen Delivery Mechanical Ventilation Fraction of Inspired Oxygen 60 05/17/23 20:00 05/17/23 20:00 05/17/23 20:00 Temperature 100.4 F H Pulse Rate 85 81 Respiratory Rate 23 H 22 H Blood Pressure 136/70 Pulse Oximetry 100 96 Oxygen Delivery Mechanical Ventilation Fraction of Inspired Oxygen 60 60 05/17/23 22:00
[2023-05-18] MEDS: FENTANYL 2,500MCG/NS250ML(*CRX 2,500 MCG/250 ML BAG 15 MCG IV CONT (20:24)
[2023-05-18] MEDS: dexmedeTOMIDine 400 MCG/100 ML 400 MCG/100 ML BAG 15.06 MCG IV CONT (23:09)
[2023-05-19] VITALS (34 sets, daily range): BP systolic 100–139; BP diastolic 59–93; PULSE 60–91; RESP 14–26; TEMP 37.2–38.1; O2SAT 90–97
[2023-05-19] MEDS: CEFEPIME 2 GM/NS 50 ML 2 GM/50 ML BAG IVPB ×4 (00:02→23:32)
[2023-05-19 00:20] LABS: Glucose Point of Care 112 mg/dl (65-105)
[2023-05-19] MEDS: IPRATROPIUM BR 0.02% INH SOLN 0.5 MG/2.5 ML VIAL INHALATION ×4 (02:10→20:49)
[2023-05-19] MEDS: ALBUTEROL SULFATE NEB 2.5 MG/3 ML INH INHALATION ×4 (02:10→20:47)
[2023-05-19 04:32] LABS: Hematocrit 35.2 % (42.0-52.0); Hemoglobin 11.4 g/dL (14.0-18.0); Mean Corpuscular HGB Conc 32.4 g/dl (32-36); Mean Corpuscular Hemoglobin 30.6 pg (26-34); Mean Corpuscular Volume 94.4 fl (80-100); Mean Platelet Volume 9.6 fl (7.4-10.4); Platelet Count Result 322 k/mm3 (150-375); Red Blood Count 3.73 M/mm3 (4.6-6.20); Red Cell Distribution Width 13.5 % (11.5-14.5); White Blood Count 9.6 K/mm3 (4.5-10.0)
[2023-05-19] MEDS: dexmedeTOMIDine 400 MCG/100 ML 400 MCG/100 ML BAG 18.83 MCG IV CONT (04:38)
[2023-05-19 04:49] LABS: Alanine Aminotransferase 35 U/L (6-50); Albumin Level 3.9 g/dL (3.5-5.1); Alkaline Phosphatase 39 U/L (38-126); Anion Gap 6 mmol/L (8-16); Aspartate Amino Transferase 37 U/L (17-59); Bilirubin,Total 0.6 mg/dL (0.2-1.3); Blood Urea Nitrogen 25 mg/dL (9-20); Calcium 9.2 mg/dL (8.4-10.2); Carbon Dioxide 31 mmol/L (22-30); Chloride 104 mmol/L (98-107); Estimated CRCL calculation 186 ml/min; Estimated Glomerular Filt Rate > 60; Glucose 122 mg/dL (65-110); Magnesium 2.2 mg/dL (1.6-2.3); Potassium 3.6 mmol/L (3.4-5.0); Sodium 141 mmol/L (137-145); Triglycerides 173 mg/dL (<150)
[2023-05-19] MEDS: CENTRAL LINE FLUSH 10 ML IV PUSH ×3 (05:13→21:05)
[2023-05-19 05:29] LABS: Alveolar/Arterial O2 Gradient 204.9 mmHg; Base Excess ABG 2.7 mEq/l (+/-2.0); Carboxyhemoglobin 0.3 % THb (0-2.0); Fractional Inspired Oxygen 45 %; HCO3 ABG 27.2 mEq/l (22.0-26.0); Methemoglobin ABG 0.3 %THb (0-1.5); Oxygen Content ABG 17.9 %vol (16.0-22.0); Oxygen Saturation ABG 94.4 % (95.0-100.0); Oxyhemoglobin 92.1 % THb (90.0-100.0); PCO2 ABG 41.1 mmHg (35.0-45.0); PO2 ABG 69.2 mmHg (80.0-100.0); PO2 FiO2 Ratio Arterial Blood 1.54 %; Reduced Hemoglobin 7.3 %THb (0-5.0); Total Hemoglobin 13.8 g/dL (12.0-18.0); pH ABG 7.438 (7.350-7.450)
[2023-05-19 05:32] LABS: Arterial Blood Gas Vent Mode CMV; Arterial Blood Gas Ventilator rate 20 /MIN; Device VENTILATOR; Modified Allen's Test Pass; Site Drawn LEFT RADIAL
[2023-05-19 05:33] LABS: Arterial Blood Gas PEEP 8 cmH2O; Arterial Blood Gas Tidal Volume 450 ml
[2023-05-19] MEDS: ENOXAPARIN 40 MG/0.4 ML SYRINGE SUB-Q (08:09)
[2023-05-19] MEDS: PANTOPRAZOLE SODIUM IV 40 MG VIAL IV PUSH (08:09)
[2023-05-19] MEDS: MINERAL OIL/WHITE PETROLATUM OINTMENT 1 APPLIC EACH EYE (08:10)
[2023-05-19] MEDS: FUROSEMIDE INJ 40 MG/4 ML VIAL IV PUSH (09:04)
[2023-05-19 09:30] LABS: Base Excess ABG 2.6 mEq/l (+/-2.0); Carboxyhemoglobin 0.3 % THb (0-2.0); Device VENTILATOR; Fractional Inspired Oxygen 45 %; HCO3 ABG 27.1 mEq/l (22.0-26.0); Methemoglobin ABG 0.3 %THb (0-1.5); Modified Allen's Test Pass; Oxygen Content ABG 16.4 %vol (16.0-22.0); Oxygen Saturation ABG 92.8 % (95.0-100.0); Oxyhemoglobin 90.1 % THb (90.0-100.0); PCO2 ABG 41.7 mmHg (35.0-45.0); PO2 ABG 63.4 mmHg (80.0-100.0); PO2 FiO2 Ratio Arterial Blood 1.41 %; Reduced Hemoglobin 9.3 %THb (0-5.0); Site Drawn LEFT RADIAL; Total Hemoglobin 12.9 g/dL (12.0-18.0); pH ABG 7.431 (7.350-7.450)
[2023-05-19 09:31] LABS: Arterial Blood Gas PEEP 8 cmH2O; Arterial Blood Gas Pressure Support 5 cmH2O; Arterial Blood Gas Vent Mode SPONTANEOUS
--- NOTE | 2023-05-19 09:47 | WPDINTPN ---
Progress Note: A&P Assessment and Plan (1) Acute respiratory failure: Code(s): J96.00 - Acute respiratory failure, unspecified whether with hypoxia or hypercapnia Status: Acute Assessment and Plan: 05/13: Patient collapsed outside a gas station, when EMS arrived was found to have agonal breathing, Narcan was given with no improvement, patient was intubated, was agitated after intubation and self-extubated. EMS reintubate the patient brought him to the ER at [facility] -currently on CMV mode of ventilation, peep of 8 45% 5/8 PSV SBT done for more than 1 hour. RSBI, ABGI and Vitals acceptable. Pt awake and following commands. Will extubate and monitor. NPO for now. Bipap PRN and at night -continue Precedex infusion for anxiolysis at this time slowly wean it -chest x-ray this morning reviewed -continue Lasix -continue cefepime (05/16). DC vancomycin. patient will complete a 5 day course of azithromycin (05/14) today -analgosedation with fentanyl, Versed, propofol infusion, maintain RASS of 0 to -1 with daily sedation vacation -thick secretions noted from the ETT, -continue Pulmozyme, albuterol and Atrovent -05/14 sputum cultures growing MSSA -05/14 blood cultures no growth x2 -05/14: Urine cultures no growth -05/14: MRSA screen negative -continue bronchodilators (2) Episode of unresponsiveness: Code(s): R40.4 - Transient alteration of awareness Status: Acute Assessment and Plan: Could be related to drug abuse, arrhythmias -troponin were negative x2, EKG showed sinus rhythm -continue to monitor cardiac monitoring -head CT was negative for any acute change on admission (3) Drug overdose: Code(s): T50.901A - Poisoning by unspecified drugs, medicaments and biological substances, accidental (unintentional), initial encounter Status: Acute Assessment and Plan: Dr. Brito discussed with patient's Debby Smalsl. She stated that the patient has a history of methamphetamines and fentanyl abuse for which he was at the rehab. He may also have warrant and may go to correction and could have done drugs again after the left the rehab. -urine drug screen was positive for opioids, benzos and amphetamine -patient adequately fluid-resuscitated since admission -off all IV fluids (05/15) Echocardiogram 05/13/2023: 1. Technically difficult study with limited views. ? 2. Left ventricular chamber dimension is normal. ? 3. Left ventricular systolic function is normal, estimated at 55-60%. ? 4. The left ventricular diastolic function is grade I diastolic dysfunction. ? 5. Right ventricular systolic function is normal. ? 6. There is mild tricuspid valve regurgitation (4) Elevated LFTs: Code(s): R79.89 - Other specified abnormal findings of blood chemistry Status: Acute Assessment and Plan: Could be related to do drugs, hypovolemia -LFTs normalized -continue to monitor (5) Electrolyte imbalance: Code(s): E87.8 - Other disorders of electrolyte and fluid balance, not elsewhere classified Status: Acute Assessment and Plan: Patient receiving potassium replacement Plan DVT prophylaxis: Lovenox Stress ulcer prophylaxis: Protonix Nutrition: Tolerating tube feeds Code Status: Full code I spoke to patient's at bedside and updated her with patient's current status including respiratory failure, oxygen requirement, treatment of pneumonia and diuretics. I answered all her questions Critical Care Time Spent: 32 minutes Due to a high probability of clinically significant, life threatening deterioration, the patient required my highest level of preparedness to intervene emergently and I personally spent this critical care time directly and personally managing the patient. This critical care time included obtaining a history; examining the patient; pulse oximetry; ordering and review of studies; arranging urgent treatment with development of a management p
--- NOTE | 2023-05-19 11:04 | PCFNICU ---
ICU Rounding Note: Pt current nutrition is NPO. Last recorded weight is 135.9 kg. Bowel Motility: +BM reported 05/19 Labs Reviewed:TG 173, BUN 25, Glu 122, Hct 35.2,Hgb 11.4 Meds Noted:Protonix, Lovenox, ,Vancomycin Skin: WNL Additional Notes: Patient has been extubated. NPO at this time. Recommend advancing diet as tolerated per MD orders. Following daily in ICU rounds. Will monitor weight,labs, tube feeding tolerance, skin every 3 days.
[2023-05-19] MEDS: POTASSIUM CHLORIDE 20 MEQ ER TABLET 40 MEQ PO (11:42)
[2023-05-19 11:48] LABS: Glucose Point of Care 88 mg/dl (65-105)
--- NOTE | 2023-05-19 15:58 | WPDPN ---
Progress Note: A&P Assessment and Plan (1) Acute respiratory failure: Code(s): J96.00 - Acute respiratory failure, unspecified whether with hypoxia or hypercapnia Status: Acute Assessment and Plan: ED-[facility] narrative: 41 year old male unknown past medical history brought in by EMS for unresponsiveness. Per EMS, bystanders noted patient was coming out of a gas station when he suddenly collapsed. When EMS on scene, narcan was given without improvement. Patient with agonal breathing so patient was intubated with etomidate, right IO placed. Patient was agitated, self-extubated, EMS re-intubated patient. A: ETT in place 8.0, continuous capnography B: Bilateral breath sounds C: peripheral pulses palpable, BP 120/80s E: No gross evidence of trauma 05/14/2023 interval history: 43-year-old male with history drug abuse and presented with a respiratory failure on ventilator unable to provide any history review of symptom, patient has a thick secretion from ET tube and sputum culture as ordered patient is being treated with azithromycin vancomycin and ampicillin, patient is seen by neon sign worker and appreciate. 05/15/2023: History of drug abuse present with respiratory failure on ventilator. On broad-spectrum antibiotics per neon sign worker. Continue current management 05/16/2023: History of drug abuse presented with respiratory failure on ventilator. On broad-spectrum antibiotics per neon sign worker diuresis ordered due to pulmonary edema findings chest x-ray and labs reviewed. Nonsustained ventricular tachycardia replace electrolytes and continue to monitor. Continue current management. Vented and sedated. 05/19/2023 interval history: patient was extubated and being treated with cefepime for pneumonia, patient stats he is feeling better, patient is present in the room, patient is seen by neon sign worker, will monitor. (2) Drug overdose: Code(s): T50.901A - Poisoning by unspecified drugs, medicaments and biological substances, accidental (unintentional), initial encounter Status: Acute Assessment and Plan: patient with history of illicit drug abuse was just recently discharged from rehab however patient is positive for benzos and amphetamines (3) Elevated LFTs: Code(s): R79.89 - Other specified abnormal findings of blood chemistry Status: Acute Assessment and Plan: most likely secondary to fatty liver and drug abuse (4) Episode of unresponsiveness: Code(s): R40.4 - Transient alteration of awareness Status: Acute Assessment and Plan: secondary to drug overdose Subjective Date/time seen: 05/19/23 15:58 Interval history: 05/19/2023 interval history: patient was extubated and being treated with cefepime for pneumonia, patient stats he is feeling better, patient is present in the room, patient is seen by neon sign worker, will monitor. Review of Systems Review of Systems: ROS unobtainable: Yes unobtainable due to endotracheal tube Exam Narrative: Morbidly obese Patient is comfortable, NAD HEENT: Eyes are clear nonicteric LUNGS: normal respiratory effort ABD: distended Lower extremities: no edema SKIN: nonjaundiced Neuro: Grossly intact Objective Data Vital Signs Vital Signs: Vital Signs - 24 hr 05/18/23 16:45 05/18/23 16:00 05/18/23 16:00 Temperature 100.1 F H Pulse Rate 84 Respiratory Rate Blood Pressure Pulse Oximetry Oxygen Delivery Oxygen Flow Rate Fraction of Inspired Oxygen 40 05/18/23 16:00 05/18/23 16:00 05/18/23 17:46 Temperature 99.9 F H Pulse Rate 84 84 79 Respiratory Rate 21 H 21 H Blood Pressure 122/70 Pulse Oximetry 93 93 94 Oxygen Delivery Mechanical Ventilation Mechanical Ventilation Oxygen Flow Rate Fraction of Inspired Oxygen 40 40 05/18/23 18:00 05/18/23 18:00 05/18/23 18:42 Temperature 99.9 F H Pulse Rate 78 79 78 Respiratory Rate 18 21 H Blood Pressure 12
[2023-05-19 16:21] LABS: Glucose Point of Care 89 mg/dl (65-105)
[2023-05-19] MEDS: ACETAMINOPHEN ELIXIR 325 MG/10.15 ML UDC 650 MG FEED TUBE (19:14)
[2023-05-19] MEDS: QUEtiapine FUMARATE 25 MG TABLET 50 MG PO (20:10)
[2023-05-19 23:38] LABS: Glucose Point of Care 91 mg/dl (65-105)
[2023-05-20] VITALS (29 sets, daily range): BP systolic 106–158; BP diastolic 53–89; PULSE 71–99; RESP 15–28; TEMP 36.8–37.8; O2SAT 87–100
[2023-05-20] MEDS: ALBUTEROL SULFATE NEB 2.5 MG/3 ML INH INHALATION ×4 (02:26→20:02)
[2023-05-20] MEDS: IPRATROPIUM BR 0.02% INH SOLN 0.5 MG/2.5 ML VIAL INHALATION ×4 (02:26→20:02)
[2023-05-20] MEDS: CENTRAL LINE FLUSH 10 ML IV PUSH ×2 (05:11→14:00)
[2023-05-20 05:27] LABS: Hematocrit 35.8 % (42.0-52.0); Hemoglobin 11.7 g/dL (14.0-18.0); Mean Corpuscular HGB Conc 32.7 g/dl (32-36); Mean Corpuscular Hemoglobin 30.1 pg (26-34); Mean Platelet Volume 9.4 fl (7.4-10.4); Platelet Count Result 359 k/mm3 (150-375); Red Blood Count 3.89 M/mm3 (4.6-6.20); Red Cell Distribution Width 13.3 % (11.5-14.5)
[2023-05-20 05:38] LABS: Alanine Aminotransferase 47 U/L (6-50); Alkaline Phosphatase 41 U/L (38-126); Anion Gap 9 mmol/L (8-16); Aspartate Amino Transferase 45 U/L (17-59); Bilirubin,Total 0.6 mg/dL (0.2-1.3); Blood Urea Nitrogen 22 mg/dL (9-20); Calcium 9.1 mg/dL (8.4-10.2); Carbon Dioxide 28 mmol/L (22-30); Chloride 102 mmol/L (98-107); Estimated CRCL calculation 182 ml/min; Estimated Glomerular Filt Rate > 60; Glucose 96 mg/dL (65-110); Potassium 3.6 mmol/L (3.4-5.0); Sodium 139 mmol/L (137-145)
[2023-05-20 06:10] LABS: Alveolar/Arterial O2 Gradient 212.4 mmHg; Base Excess ABG 2.7 mEq/l (+/-2.0); Carboxyhemoglobin 0.3 % THb (0-2.0); Fractional Inspired Oxygen 45 %; HCO3 ABG 26.4 mEq/l (22.0-26.0); Methemoglobin ABG 0.3 %THb (0-1.5); Oxygen Content ABG 20.8 %vol (16.0-22.0); Oxyhemoglobin 91.3 % THb (90.0-100.0); PCO2 ABG 37.8 mmHg (35.0-45.0); PO2 ABG 65.5 mmHg (80.0-100.0); PO2 FiO2 Ratio Arterial Blood 1.46 %; Reduced Hemoglobin 8.1 %THb (0-5.0); Total Hemoglobin 16.2 g/dL (12.0-18.0); pH ABG 7.462 (7.350-7.450)
[2023-05-20 06:11] LABS: Device BIPAP; Modified Allen's Test Pass; Site Drawn LEFT RADIAL
[2023-05-20 06:12] LABS: Expiratory Pressure 8 cmH2O; Inspiratory Pressure 14 cmH2O
--- NOTE | 2023-05-20 08:43 | WPDINTPN ---
Progress Note: A&P Assessment and Plan (1) Acute respiratory failure: Code(s): J96.00 - Acute respiratory failure, unspecified whether with hypoxia or hypercapnia Status: Acute Assessment and Plan: 05/13: Patient collapsed outside a gas station, when EMS arrived was found to have agonal breathing, Narcan was given with no improvement, patient was intubated, was agitated after intubation and self-extubated. EMS reintubate the patient brought him to the ER at [facility] 05/19 02/22 PSV SBT done for more than 1 hour. RSBI, ABGI and Vitals acceptable. Pt awake and following commands. Will extubate and monitor. NPO for now. Bipap PRN and at night 05/20 wore BiPAP overnight. Transitioned to nasal cannula this morning -chest x-ray this morning reviewed -continue Lasix -bronchodilators Incentive spirometry (2) Fever: Code(s): R50.9 - Fever, unspecified Status: Acute Assessment and Plan: -05/14 sputum cultures growing MSSA -05/14 blood cultures no growth x2 -05/14: Urine cultures no growth -05/14: MRSA screen negative Continue cefepime (05/16). DC vancomycin. patient will complete a 5 day course of azithromycin (05/14) today 05/20 -low-grade fever overnight. WBC essentially normal. Will DC central venous catheter, DC Nicholas. Add IS to minimize atelectasis. Continue cefepime, if still febrile will order repeat cultures (3) Episode of unresponsiveness: Code(s): R40.4 - Transient alteration of awareness Status: Acute Assessment and Plan: Could be related to drug abuse, arrhythmias -troponin were negative x2, EKG showed sinus rhythm -head CT was negative for any acute change on admission (4) Drug overdose: Code(s): T50.901A - Poisoning by unspecified drugs, medicaments and biological substances, accidental (unintentional), initial encounter Status: Acute Assessment and Plan: Dr. Brito discussed with patient's Debby Smalls. She stated that the patient has a history of methamphetamines and fentanyl abuse for which he was at the rehab. He may also have warrant and may go to half-way and could have done drugs again after the left the rehab. -urine drug screen was positive for opioids, benzos and amphetamine -patient adequately fluid-resuscitated since admission -off all IV fluids (05/15) Echocardiogram 05/13/2023: 1. Technically difficult study with limited views. ? 2. Left ventricular chamber dimension is normal. ? 3. Left ventricular systolic function is normal, estimated at 55-60%. ? 4. The left ventricular diastolic function is grade I diastolic dysfunction. ? 5. Right ventricular systolic function is normal. ? 6. There is mild tricuspid valve regurgitation (5) Elevated LFTs: Code(s): R79.89 - Other specified abnormal findings of blood chemistry Status: Acute Assessment and Plan: Could be related to do drugs, hypovolemia -LFTs normalized -continue to monitor (6) Electrolyte imbalance: Code(s): E87.8 - Other disorders of electrolyte and fluid balance, not elsewhere classified Status: Acute Assessment and Plan: Patient receiving potassium replacement Plan DVT prophylaxis: Lovenox Stress ulcer prophylaxis: Protonix Nutrition: Resume heart healthy diet Code Status: Full code Incentive spirometry PT OT Up in chair Subjective Date/time seen: 05/20/23 Overnight events reviewed. Low-grade fever overnight Patient was extubated yesterday. Wore BiPAP mask overnight He feels much better this morning and denies any specific complaints. He is complaining of feeling hungry and wanting to eat food. Patient denies fever, chest pain, shortness of breath, cough, nausea vomiting, abdominal pain,, diarrhea, headache or constipation.. All other systems were reviewed and were negative Good urine output in response to Lasix Other vitals acceptable Interval history: 41 year old male unknown past medical history brou
[2023-05-20] MEDS: POTASSIUM CHLORIDE 20 MEQ ER TABLET 40 MEQ PO (08:53)
[2023-05-20] MEDS: PANTOPRAZOLE SODIUM IV 40 MG VIAL IV PUSH (08:53)
[2023-05-20] MEDS: ENOXAPARIN 40 MG/0.4 ML SYRINGE SUB-Q (08:53)
[2023-05-20] MEDS: FUROSEMIDE 40 MG TABLET PO (08:53)
[2023-05-20] MEDS: CEFEPIME 2 GM/NS 50 ML 2 GM/50 ML BAG IVPB ×2 (08:53→16:17)
--- NOTE | 2023-05-20 11:14 | PCFNICU ---
ICU Rounding Note: Pt current nutrition is Heart Healthy. Last recorded weight is 144.9 kg. Bowel Motility:+Bm reported 05/19 Labs Reviewed:BUN 22, Hct 35.8,Hgb 11.7 Meds Noted:Lasix, Protonix, Atrovent Skin: WNL Additional Notes: Patient has advanced to a heart healthy diet, eating greater than 75% of meals. Agree with diet order. No further nutritional interventions needed. Will monitor weight,labs, tube feeding tolerance, skin every 7 days.
--- NOTE | 2023-05-20 15:17 | WPDPN ---
Progress Note: A&P Assessment and Plan (1) Acute respiratory failure: Code(s): J96.00 - Acute respiratory failure, unspecified whether with hypoxia or hypercapnia Status: Acute Assessment and Plan: ED-[facility] narrative: 41 year old male unknown past medical history brought in by EMS for unresponsiveness. Per EMS, bystanders noted patient was coming out of a gas station when he suddenly collapsed. When EMS on scene, narcan was given without improvement. Patient with agonal breathing so patient was intubated with etomidate, right IO placed. Patient was agitated, self-extubated, EMS re-intubated patient. A: ETT in place 8.0, continuous capnography B: Bilateral breath sounds C: peripheral pulses palpable, BP 120/80s E: No gross evidence of trauma 05/14/2023 interval history: 43-year-old male with history drug abuse and presented with a respiratory failure on ventilator unable to provide any history review of symptom, patient has a thick secretion from ET tube and sputum culture as ordered patient is being treated with azithromycin vancomycin and ampicillin, patient is seen by crystal evaluator and appreciate. 05/15/2023: History of drug abuse present with respiratory failure on ventilator. On broad-spectrum antibiotics per crystal evaluator. Continue current management 05/16/2023: History of drug abuse presented with respiratory failure on ventilator. On broad-spectrum antibiotics per crystal evaluator diuresis ordered due to pulmonary edema findings chest x-ray and labs reviewed. Nonsustained ventricular tachycardia replace electrolytes and continue to monitor. Continue current management. Vented and sedated. 05/20/2023 interval history: patient was extubated and being treated with cefepime for pneumonia, patient stats he is feeling better, patient is present in the room, patient is seen by crystal evaluator, and today discharge patient from ICU and IMU, repeat chest x-rays showed persistent pneumonia, will CPM, will monitor. (2) Drug overdose: Code(s): T50.901A - Poisoning by unspecified drugs, medicaments and biological substances, accidental (unintentional), initial encounter Status: Acute Assessment and Plan: patient with history of illicit drug abuse was just recently discharged from rehab however patient is positive for benzos and amphetamines (3) Elevated LFTs: Code(s): R79.89 - Other specified abnormal findings of blood chemistry Status: Acute Assessment and Plan: most likely secondary to fatty liver and drug abuse (4) Episode of unresponsiveness: Code(s): R40.4 - Transient alteration of awareness Status: Acute Assessment and Plan: secondary to drug overdose Subjective Date/time seen: 05/20/23 15:17 Interval history: 05/20/2023 interval history: patient was extubated and being treated with cefepime for pneumonia, patient stats he is feeling better, patient is present in the room, patient is seen by crystal evaluator, and today discharge patient from ICU and IMU, repeat chest x-rays showed persistent pneumonia, will CPM, will monitor. Objective Data Vital Signs Vital Signs: Vital Signs - 24 hr 05/19/23 16:00 05/19/23 16:00 05/19/23 16:00 Temperature 100.6 F H Pulse Rate 79 79 79 Respiratory Rate 26 H 26 H Blood Pressure 104/84 Pulse Oximetry 95 95 Oxygen Delivery High Flow Nasal Cannula Oxygen Flow Rate 7 Fraction of Inspired Oxygen 05/19/23 18:00 05/19/23 18:00 05/19/23 19:14 Temperature 100.5 F H 100.6 F H Pulse Rate 91 90 Respiratory Rate 18 Blood Pressure 138/81 Pulse Oximetry 93 Oxygen Delivery Oxygen Flow Rate Fraction of Inspired Oxygen 05/19/23 20:00 05/19/23 20:49 05/19/23 20:58 Temperature 100.5 F H Pulse Rate 82 81 80 Respiratory Rate 21 H 17 17 Blood Pressure 139/93 H Pulse Oximetry 91 Oxygen Delivery Oxygen Flow Rate Fraction of Inspired Oxygen 05/19/23 21:07 0
--- NOTE | 2023-05-20 16:12 | PCPTNOTE ---
On 05/20/23, the student, DAVID Sewell, provided care and completed [facility] documentation on this patient. I have reviewed the student's documentation and agree with the findings.
[2023-05-20] MEDS: QUEtiapine FUMARATE 25 MG TABLET 50 MG PO (21:08)
[2023-05-21] VITALS (11 sets, daily range): BP systolic 120–141; BP diastolic 71–85; PULSE 75–84; RESP 18–25; TEMP 36.9–37.1; O2SAT 92–98
[2023-05-21] MEDS: CEFEPIME 2 GM/NS 50 ML 2 GM/50 ML BAG IVPB ×2 (00:40→08:28)
[2023-05-21] MEDS: ALBUTEROL SULFATE NEB 2.5 MG/3 ML INH INHALATION (02:28)
[2023-05-21] MEDS: IPRATROPIUM BR 0.02% INH SOLN 0.5 MG/2.5 ML VIAL INHALATION (02:28)
[2023-05-21 04:59] LABS: Hematocrit 36.2 % (42.0-52.0); Mean Corpuscular HGB Conc 33.1 g/dl (32-36); Mean Corpuscular Volume 90.5 fl (80-100); Mean Platelet Volume 9.8 fl (7.4-10.4); Platelet Count Result 379 k/mm3 (150-375); Red Cell Distribution Width 13.2 % (11.5-14.5); White Blood Count 10.1 K/mm3 (4.5-10.0)
[2023-05-21 05:16] LABS: Alanine Aminotransferase 61 U/L (6-50); Alkaline Phosphatase 43 U/L (38-126); Anion Gap 8 mmol/L (8-16); Aspartate Amino Transferase 69 U/L (17-59); Bilirubin,Total 0.6 mg/dL (0.2-1.3); Blood Urea Nitrogen 19 mg/dL (9-20); Calcium 9.2 mg/dL (8.4-10.2); Carbon Dioxide 26 mmol/L (22-30); Chloride 102 mmol/L (98-107); Estimated CRCL calculation 209 ml/min; Estimated Glomerular Filt Rate > 60; Glucose 93 mg/dL (65-110); Magnesium 1.9 mg/dL (1.6-2.3); Potassium 3.3 mmol/L (3.4-5.0); Sodium 136 mmol/L (137-145)
[2023-05-21] MEDS: PANTOPRAZOLE SODIUM IV 40 MG VIAL IV PUSH (08:27)
[2023-05-21] MEDS: FUROSEMIDE 40 MG TABLET PO (08:27)
[2023-05-21] MEDS: ENOXAPARIN 40 MG/0.4 ML SYRINGE SUB-Q (08:28)
--- NOTE | 2023-05-21 09:30 | PC.NURSE ---
Patient taking off telemetry and pulse ox. Dr. Mendes called and aware of patients refusal.
--- NOTE | 2023-05-21 11:01 | PCOTNOTE ---
Attempted to see for OT evaluation. Patient up, independently walking around the room. RN states he is being discharged soon and OT evaluation not warranted at this time.
--- NOTE | 2023-05-21 11:43 | PM.DS ---
DS: Admitting Diagnosis Discharge Date 05/21/2023 Admitting Diagnosis respiratory failure DS: Discharge Diagnosis Discharge Diagnosis (1) Acute respiratory failure: Code(s): J96.00 - Acute respiratory failure, unspecified whether with hypoxia or hypercapnia Status: Acute Assessment and Plan: ED-[facility] narrative: 41 year old male unknown past medical history brought in by EMS for unresponsiveness. Per EMS, bystanders noted patient was coming out of a gas station when he suddenly collapsed. When EMS on scene, narcan was given without improvement. Patient with agonal breathing so patient was intubated with etomidate, right IO placed. Patient was agitated, self-extubated, EMS re-intubated patient. A: ETT in place 8.0, continuous capnography B: Bilateral breath sounds C: peripheral pulses palpable, BP 120/80s E: No gross evidence of trauma 05/14/2023 interval history: 43-year-old male with history drug abuse and presented with a respiratory failure on ventilator unable to provide any history review of symptom, patient has a thick secretion from ET tube and sputum culture as ordered patient is being treated with azithromycin vancomycin and ampicillin, patient is seen by patent leather sorter and appreciate. 05/15/2023: History of drug abuse present with respiratory failure on ventilator. On broad-spectrum antibiotics per patent leather sorter. Continue current management 05/16/2023: History of drug abuse presented with respiratory failure on ventilator. On broad-spectrum antibiotics per patent leather sorter diuresis ordered due to pulmonary edema findings chest x-ray and labs reviewed. Nonsustained ventricular tachycardia replace electrolytes and continue to monitor. Continue current management. Vented and sedated. 05/20/2023 interval history: patient was extubated and being treated with cefepime for pneumonia, patient stats he is feeling better, patient is present in the room, patient is seen by patent leather sorter, and today discharge patient from ICU and IMU, repeat chest x-rays showed persistent pneumonia, will CPM, will monitor. (2) Drug overdose: Code(s): T50.901A - Poisoning by unspecified drugs, medicaments and biological substances, accidental (unintentional), initial encounter Status: Acute Assessment and Plan: patient with history of illicit drug abuse was just recently discharged from rehab however patient is positive for benzos and amphetamines (3) Elevated LFTs: Code(s): R79.89 - Other specified abnormal findings of blood chemistry Status: Acute Assessment and Plan: most likely secondary to fatty liver and drug abuse (4) Episode of unresponsiveness: Code(s): R40.4 - Transient alteration of awareness Status: Acute Assessment and Plan: secondary to drug overdose DS: Summary Hospital Course Reason for hospitalization: respiratory failure Narrative: ED-HPI narrative: 41 year old male unknown past medical history brought in by EMS for unresponsiveness. Per EMS, bystanders noted patient was coming out of a gas station when he suddenly collapsed. When EMS on scene, narcan was given without improvement. Patient with agonal breathing so patient was intubated with etomidate, right IO placed. Patient was agitated, self-extubated, EMS re-intubated patient. A: ETT in place 8.0, continuous capnography B: Bilateral breath sounds C: peripheral pulses palpable, BP 120/80s E: No gross evidence of trauma ?43-year-old male with history drug abuse and presented with a respiratory failure on ventilator unable to provide any history review of symptom, patient is seen by patent leather sorter and appreciate. ?patient with respiratory failure on ventilator admitted as inpatient Hospital Course: patient was extubated and being treated with cefepime for pneumonia, patient stats he is feeling better, patient is present in the room,? patient is seen by patent leather sorter, and today discharge patient from
== END 2023-05-21 11:55 | disposition home or self-care (01) | DRG 917 ==
LOC: ANHED 05:12 → ANHICU 05:58
PROVIDERS: Internal Medicine; Admitting Provider Internal Medicine; Emergency Provider Emergency Medicine; Visit Provider Family Medicine
DX: T40.2X1A Poisoning by other opioids, accidental (unintentional), initial encounter (principal); J69.0 Pneumonitis due to inhalation of food and vomit; J96.00 Acute respiratory failure, unspecified whether with hypoxia or hypercapnia; J81.0 Acute pulmonary edema; I47.20 Ventricular tachycardia, unspecified; T43.621A Poisoning by amphetamines, accidental (unintentional), initial encounter; E87.8 Other disorders of electrolyte and fluid balance, not elsewhere classified; F17.210 Nicotine dependence, cigarettes, uncomplicated; F31.9 Bipolar disorder, unspecified; F41.9 Anxiety disorder, unspecified; R79.89 Other specified abnormal findings of blood chemistry
CPT/HCPCS: 31500; 36415; 36600; 70450; 71045; 71275; 72125; 74174; 80048; 80053; 80076; 80202; 80307; 82375; 82550; 82805; 82948; 83050; 83605; 83690; 83735; 83880; 84100; 84145; 84478; 84484; 85025; 85027; 87040; 87070; 87081; 87086; 87147; 87181; 87186; 87205; 93005; 93306; 93971; 94002; 94003; 94640; 96365; 96366; 96367; 96375; 97161; 99285; A9270; C1751; C9113; G0378; J0295; J0456; J0692; J0696; J1650; J1940; J2060; J2250; J2704; J3010; J3370; J3475; J3480; J7030; J7120; Q9957; Q9967

== ENCOUNTER 2024-05-14 11:29 | Emergency (ER) | payer MEDICARE, MEDICAID, SELFPAY ==
[2024-05-14 11:43] VITALS: BP 114/78; PULSE 109; RESP 16; TEMP 38; O2SAT 98
--- NOTE | 2024-05-14 12:29 | ED.URI ---
HPI - URI/Sore Throat General Chief Complaint: Upper Respiratory Infection Stated Complaint: sore throat,fever Time Seen by Provider: 05/14/24 12:23 Source: patient, family () and RN notes reviewed Mode of arrival: ambulatory Limitations: no limitations History of Present Illness HPI Narrative: Patient presents today with a 2 day history of sore throat, headache, fever up to 102.5, body aches, sweats. Currently rates his pain 8/10 and has been taking Tylenol with little relief. Patient is allergic to ibuprofen Related Data Home Medications Medication Instructions Recorded Confirmed tramadol 50 mg tablet 50 mg PO Q6H PRN Pain (Scale Score 05/13/23 05/14/24 4-6) Allergies Allergy/AdvReac Type Severity Reaction Status Date / Time ibuprofen Allergy Rash Verified 05/14/24 11:55 Review of Systems Review of Systems: CONSTITUTIONAL: + body aches, sweats, fever EYES: Denies visual changes, redness, or discharge. ENT: Denies rhinorrhea, congestion, or otalgia.+ sore throat CARDIOVASCULAR: Denies chest pain, palpitations, or edema. RESPIRATORY: Denies cough or dyspnea. GASTROINTESTINAL: Denies abdominal pain, nausea, vomiting, or diarrhea. GENITOURINARY: Denies dysuria or hematuria. SKIN: Denies rash, itching, or wounds. MUSCULOSKELETAL: Denies back pain, joint pain, or myalgia. NEUROLOGIC: Denies numbness, tingling, or weakness.+ headache PSYCH: Denies depression or anxiety. [facility] Family History Family History Father Lung cancer Diabetes mellitus Mother Diabetes mellitus Social History Social History Smoking packs per day: 1.5 Smoking cigarettes per day: 30.0 Years smoked: 28 Smoking pack-years: 42.00 Smoking status: Current every day smoker Tobacco type: cigarettes Alcohol intake: never Substance use: current Substance use type: amphetamines, sedatives and opiates Spiritual care concerns: No Comments At time of signature, I have reviewed and agree with nursing past medical, surgical, social and family history unless otherwise noted. Please see nursing chart for further information. There is no relevant family history pertinent to the presenting complaint Exam Narrative: GENERAL: Ill appearing, well-nourished, and in no acute distress. Diaphoretic HEAD: Normocephalic, atraumatic. EYES: EOMI. No redness or drainage. Conjunctivae normal. ENT: Mucous membranes pink and moist. Nares clear. No rhinorrhea. TMs normal bilaterally. Throat erythematous and mildly edematous. Tonsils 3+ with white exudate. Uvula midline. NECK: Normal AROM. Supple. No lymphadenopathy. CHEST: No respiratory distress. Clear to auscultation. HEART: Regular rate and rhythm. No murmur appreciated. EXTREMITIES: Normal range of motion. No edema. SKIN: Warm, dry, no rash. Capillary refill normal. Normal skin turgor. NEURO: No focal deficits. Alert and oriented x3. Gait steady. PSYCH: Normal affect. No signs of depression or anxiety. Course Course Level of Care: Express Care Visit Vital Signs Vital signs: Vital Signs Temperature 100.4 F H 05/14/24 11:43 Pulse Rate 109 H 05/14/24 11:43 Respiratory Rate 16 05/14/24 11:43 Blood Pressure 114/78 05/14/24 11:43 Pulse Oximetry 98 05/14/24 11:43 Oxygen Delivery Room Air 05/14/24 11:43 Temperature 100.4 F H 05/14/24 11:43 Pulse Rate 109 H 05/14/24 11:43 Respiratory Rate 16 05/14/24 11:43 Blood Pressure 114/78 05/14/24 11:43 Pulse Oximetry 98 05/14/24 11:43 Oxygen Delivery Room Air 05/14/24 11:43 Reviewed MDM - URI/Sore Throat MDM Narrative Medical decision making narrative: Rapid strep positive. Prescription for amoxicillin sent to pharmacy. Anticipatory guidance given. Differential Diagnosis Differential diagnosis: Likely upper respiratory infection, sinusitis, viral infect
== END 2024-05-14 12:35 | disposition home or self-care (01) ==
PROVIDERS: Emergency Provider Nurse Practitioner
DX: J02.0 Streptococcal pharyngitis (principal); F17.210 Nicotine dependence, cigarettes, uncomplicated
CPT/HCPCS: 87880; 99213; G0463